=== PATIENT | female | born 1980 | race Caucasian/White ===

== ENCOUNTER → 2016-05-15 | Outpatient (CLI) | payer OTHER ==
--- NOTE | 2016-05-15 10:04 | WWHP ---
DATE OF SERVICE: 05/15/2016 CHIEF COMPLAINT: The patient is here for her routine gynecologic exam and mammogram. HPI: This is a 35-year-old G3, P2-0-1-2 with an LMP of 04/27/2016. She is status post tubal ligation. She states her periods are regular every month. She states they seem to be lasting longer than before and can last up to 10 to 12 days. She states she can have some heavier flow during the middle part of the period. She states these are not very bothersome. The patient is otherwise without complaints. Past medical history is unremarkable. MEDICATIONS: None. ALLERGIES: No known drug allergies. Past surgical and family histories are unchanged from the 2014 H&P. 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 She has no history of STDs. SOCIAL HISTORY: She denies tobacco, alcohol, and drug use. 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 REVIEW OF SYSTEMS: She has gained about 14 pounds over the last 2 years. She denies respiratory, cardiac, or GI problems. PHYSICAL EXAM: Blood pressure 121/80. Height 5 feet 6 inches. Weight 180 pounds. Temperature 98.4, pulse 70. This is a well-developed, well-nourished white female who is alert and oriented x3 in no acute distress. HEENT is within normal limits. NECK: Supple without mass or thyromegaly. CHEST AND LUNGS: Clear to auscultation. HEART: Regular rate and rhythm. Breasts are without mass or discharge. Axillary exam is negative for adenopathy. BACK: Negative for CVA tenderness. ABDOMEN: Soft, nontender, without palpable masses. PELVIC EXAM: Normal external genitalia. Cervix and vagina appear normal. There is no evidence of prolapse. The uterus is multiparous, nongravid size and nontender. There are no palpable adnexal masses or tenderness. Rectal exam is negative for mass or tenderness. EXTREMITIES: Nontender. IMPRESSION: 1. A 35-year-old female with normal gynecologic exam. 2. Mild hypermenorrhea. 3. She is status post tubal ligation. PLAN: 1. Pap smear was performed. 2. Self breast examination was discussed. 3. Mammogram will be done today, and I have recommended yearly mammograms from here on out because of her strong family history of breast cancer. She believes her mother was around 40 when she developed breast cancer. 4. We have discussed her prolonged menses. We have discussed various options, including oral contraception use as well as endometrial ablation. If the periods are bothersome to her, I have recommended that she consider endometrial ablation. She will consider this. She will also keep a menstrual calendar. 5. She will return in one year and p.r.n.
--- NOTE | 2016-05-16 13:12 | MM ---
Reason for exam: screening (asymptomatic). Last mammogram was performed 2 years and 5 months ago. History: Patient has history of other cancer at age 16 and is nulliparous. Family history of breast cancer in mother and breast cancer in maternal grandmother. Excisional biopsy of the left breast. Took hormonal contraceptives for 2 years. Physical Findings: A clinical breast exam by your physician is recommended on an annual basis and results should be correlated with mammographic findings. MG 3D Screening Mammo W/Cad Bilateral CC and MLO view(s) were taken. Prior study comparison: December 04, 2013, bilateral MG diagnostic mammo w CAD BEAU. April 10, 1999, bilateral diagnostic mammogram. The breast tissue is extremely dense which could obscure a lesion on mammography. There is no discrete abnormality. No significant changes when compared with prior studies. ASSESSMENT: Negative, BI-RAD 1 RECOMMENDATION: Routine screening mammogram of both breasts in 1 year.
== END | disposition home or self-care (01) ==
LOC: WWCWWP 07:58
PROVIDERS: ATTEND Obstetrics & Gynecology
DX: Z12.31 Encounter for screening mammogram for malignant neoplasm of breast (principal)
CPT/HCPCS: 77063; G0202

== ENCOUNTER → 2017-09-25 | Outpatient (CLI) | payer OTHER ==
[2017-09-25 08:07] LABS: Basophils # (A) 0.1 k/uL (0-0.2); Basophils % (A) 1 %; Eosinophils # (A) 0.2 k/uL (0-0.7); Eosinophils % (A) 3 %; HCT 37.3 % (34.0-46.0); HGB 12.5 gm/dL (11.4-16.0); Lymphocytes # (A) 2.4 k/uL (1.0-4.8); Lymphocytes % (A) 40 %; MCH 26.9 pg (25.0-35.0); MCHC 33.4 g/dL (31.0-37.0); MCV 80.6 fL (80.0-100.0); Mean Platelet Volume 8.6; Monocytes # (A) 0.4 k/uL (0-1.0); Monocytes % (A) 7 %; Neutrophils # (A) 2.8 k/uL (1.3-7.7); Neutrophils % (A) 47 %; Platelet Count 246 k/uL (150-450); RBC 4.63 m/uL (3.80-5.40)
[2017-09-25 14:34] LABS: T4, Free (Free Thyroxine) 0.93 ng/dL (0.78-2.19)
[2017-09-25 14:40] LABS: ALT 22 U/L (9-52); AST 20 U/L (14-36); Albumin 4.3 g/dL (3.5-5.0); Alkaline Phosphatase 68 U/L (38-126); Anion Gap 9 mmol/L; Blood Urea Nitrogen 30 mg/dL (7-17); Calcium 9.1 mg/dL (8.4-10.2); Carbon Dioxide 26 mmol/L (22-30); Chloride 104 mmol/L (98-107); Cholesterol 239 mg/dL (<200); Glucose 92 mg/dL (74-99); HDL Cholesterol 42 mg/dL (40-60); LDL Cholesterol,Calculated 174 mg/dL (0-99); Potassium 3.9 mmol/L (3.5-5.1); Sodium 139 mmol/L (137-145); Total Bilirubin 0.5 mg/dL (0.2-1.3); Total Protein 7.4 g/dL (6.3-8.2); Triglycerides 113 mg/dL (<150)
== END | disposition home or self-care (01) ==
LOC: LABWHC1 07:45
PROVIDERS: ATTEND Internal Medicine
DX: Z00.01 Encounter for general adult medical examination with abnormal findings (principal); E03.9 Hypothyroidism, unspecified; Z13.220 Encounter for screening for lipoid disorders
CPT/HCPCS: 36415; 80053; 80061; 84439; 84443; 85025

== ENCOUNTER → 2018-05-21 | Outpatient (CLI) | payer OTHER ==
[2018-05-21 08:09] VITALS: BP 132/77; PULSE 76; RESP 18; TEMP 96.8; BMI 30.9
--- NOTE | 2018-05-21 09:59 | P.HPOB ---
History of Present Illness H&P Date: 05/21/18 Chief Complaint: The patient is here for her routine gynecologic exam. This is a 37-year-old 012 with an LMP of 05/05/2018. The patient is status post tubal ligation. She states her menstrual periods are regular every month lasting 7 to 10 days with 4 days of heavier flow. She states she had some blood clots with her menstrual period in April which were a little larger than usual. She is declining any medication or treatment for her menstrual periods at this time. She is aware that there are various options available to her. Review of Systems The patient has gained 6 pounds over the last year. She denies respiratory, cardiac, or G.I. problems. Past Medical History Past Medical History: Thyroid Disorder Additional Past Medical History / Comment(s): migrane. 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 She had cryotherapy of the cervix in 1996 History of Any Multi-Drug Resistant Organisms: None Reported Past Surgical History: Breast Surgery, Section (x2), Tubal Ligation Additional Past Surgical History / Comment(s): lumpectomy Left breast. D&C. Cryotherapy of the cervix 1996. 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 - Past Family History Mother Family Medical History: Cancer, Diabetes Mellitus Additional Family Medical History / Comment(s): Breast cancer, colon cancer, cervical cancer and diabetes. Grandmother had leukemia, colon cancer, and breast cancer. Sister(s) Family Medical History: Diabetes Mellitus Medications and Allergies Home Medications Medication Instructions Recorded Confirmed Type Ibuprofen [Motrin] 800 mg PO Q8HR PRN #30 tab 04/03/15 05/21/18 Rx Cholecalciferol [Vitamin D3] 1,000 unit PO DAILY 05/21/18 05/21/18 History Ubidecarenone [Co Q-10] 100 mg PO DAILY 05/21/18 05/21/18 History Allergies Allergy/AdvReac Type Severity Reaction Status Date / Time No Known Allergies Allergy Verified 05/21/18 08:03 Exam Vital Signs Temp Pulse Resp BP Pulse Ox 05/21/18 08:05 96.8 F L 76 18 132/77 97 Intake and Output 05/20/18 05/21/18 05/21/18 22:59 06:59 14:59 Other: Weight 84.368 kg Height 5'5", weight 186 pounds, BMI 31.0. This is a well-developed well-nourished white female who is alert and oriented times 3 in no acute distress. HEENT: Within normal limits. NECK: Supple without mass or thyromegaly. CHEST AND LUNGS: Clear to auscultation. HEART: Regular rate and rhythm. BREASTS: Are without mass or discharge. AXILLARY EXAM: Negative for adenopathy. BACK: Negative for CVA tenderness. ABDOMEN: Soft, nontender, without palpable masses. PELVIC EXAM: Normal external genitalia. Cervix and vagina appear normal. There is no unusual discharge. There is no evidence of prolapse. The uterus is mid to anterior position, nongravid size and nontender. There are no palpable adnexal masses or tenderness. RECTAL EXAM: there is a small soft internal hemorrhoid which is nontender. Rectal exam is otherwise negative for mass or tenderness. EXTREMITIES: Nontender. IMPRESSION: 1. 37-year-old female with normal gynecologic exam who is status post tubal ligation. 2. Mild hypermenorrhea declining any treatment at this time. PLAN: 1. Pap smear was performed. 2. Self breast awareness was discussed with the patient. 3. Screening mammogram will be done next year and yearly thereafter. She has had several screening mammograms in the past because of her family history. 4. Osteoporosis prevention was discussed. I have stressed the importance of adequate calcium, vitamin D and regular exercise. Recommended amounts of calcium and vitamin D were also discussed. 5. She will keep a menstrual calendar. We have discussed possible options for her hypermenorrhea including endometrial ablation. She is declining any treatment at this time. 6. She was advised to return in one year for her annual well woman exam.
== END | disposition home or self-care (01) ==
LOC: WWCWWP 07:50
PROVIDERS: ATTEND Obstetrics & Gynecology
DX: Z53.9 Procedure and treatment not carried out, unspecified reason (principal)

== ENCOUNTER → 2019-05-27 | Outpatient (CLI) | payer OTHER ==
[2019-05-27 11:23] LABS: Basophils # (A) 0.1 k/uL (0-0.2); Basophils % (A) 1 %; Eosinophils # (A) 0.2 k/uL (0-0.7); Eosinophils % (A) 2 %; HCT 37.6 % (34.0-46.0); Lymphocytes # (A) 2.8 k/uL (1.0-4.8); Lymphocytes % (A) 33 %; MCH 24.8 pg (25.0-35.0); MCHC 31.9 g/dL (31.0-37.0); MCV 77.8 fL (80.0-100.0); Mean Platelet Volume 9.7; Microcytosis Slight; Monocytes # (A) 0.4 k/uL (0-1.0); Monocytes % (A) 5 %; Neutrophils # (A) 4.8 k/uL (1.3-7.7); Neutrophils % (A) 57 %; Platelet Count 292 k/uL (150-450); RBC 4.83 m/uL (3.80-5.40); RDW 15.6 % (11.5-15.5); WBC 8.4 k/uL (3.8-10.6)
[2019-05-27 16:41] LABS: African American GFR (CKD) 82.2 (60.0-200.0); Albumin 4.5 g/dL (3.80-4.90); Albumin/Globulin Ratio 1.96 (1.60-3.17); Calcium 9.4 mg/dL (8.7-10.3); Chol/HDL Ratio 5.23; Globulin 2.3 g/dL (1.6-3.3); LDL Cholesterol,Calculated 145.6 mg/dL (0.0-131.0); Non-African American GFR(CKD) 70.9 (60.0-200.0); Potassium 4.1 mmol/L (3.5-5.5); Total Bilirubin 0.6 mg/dL (0.2-1.2); Total Protein 6.8 g/dL (6.2-8.2); VLDL Calculation 23.4 mg/dL (5.00-40.00)
== END | disposition home or self-care (01) ==
LOC: LABWHC1 09:29
PROVIDERS: ATTEND Internal Medicine
DX: Z00.01 Encounter for general adult medical examination with abnormal findings (principal); E03.9 Hypothyroidism, unspecified; Z13.220 Encounter for screening for lipoid disorders
CPT/HCPCS: 36415; 80053; 80061; 84439; 84443; 85025

== ENCOUNTER → 2019-07-09 | Outpatient (CLI) | payer OTHER ==
[2019-07-09 15:32] LABS: Chol/HDL Ratio 4.02; LDL Cholesterol,Calculated 102.2 mg/dL (0.0-131.0); VLDL Calculation 30.8 mg/dL (5.00-40.00)
[2019-07-09 15:41] LABS: T4, Free (Free Thyroxine) 1.3 ng/dL (0.80-1.80)
== END | disposition home or self-care (01) ==
LOC: LABWHC1 08:18
PROVIDERS: ATTEND Internal Medicine
DX: E03.9 Hypothyroidism, unspecified (principal); E78.00 Pure hypercholesterolemia, unspecified
CPT/HCPCS: 36415; 80061; 84439; 84443; 84450; 84460

== ENCOUNTER → 2020-02-18 | Outpatient (CLI) | payer OTHER ==
[2020-02-18 08:33] LABS: Anisocytosis Slight; Basophils # (A) 0.1 k/uL (0-0.2); Basophils % (A) 1 %; Eosinophils # (A) 0.3 k/uL (0-0.7); Eosinophils % (A) 4 %; HCT 38.7 % (34.0-46.0); HGB 12.1 gm/dL (11.4-16.0); Hypochromasia Moderate; Lymphocytes # (A) 2.1 k/uL (1.0-4.8); Lymphocytes % (A) 32 %; MCH 23.3 pg (25.0-35.0); MCHC 31.1 g/dL (31.0-37.0); MCV 74.7 fL (80.0-100.0); Mean Platelet Volume 8.6; Microcytosis Slight; Monocytes # (A) 0.4 k/uL (0-1.0); Monocytes % (A) 6 %; Neutrophils # (A) 3.7 k/uL (1.3-7.7); Neutrophils % (A) 56 %; Platelet Count 342 k/uL (150-450); RBC 5.18 m/uL (3.80-5.40); RDW 16.1 % (11.5-15.5); WBC 6.7 k/uL (3.8-10.6)
[2020-02-18 15:25] LABS: African American GFR (CKD) 81.6 (60.0-200.0); Albumin 4.4 g/dL (3.80-4.90); Albumin/Globulin Ratio 1.83 (1.60-3.17); Anion Gap 5.2 mmol/L (4.00-12.00); Calcium 9.3 mg/dL (8.7-10.3); Carbon Dioxide 28.8 mmol/L (21.6-31.8); Chol/HDL Ratio 5.08; Globulin 2.4 g/dL (1.6-3.3); LDL Cholesterol,Calculated 159.8 mg/dL (0.0-131.0); Non-African American GFR(CKD) 70.4 (60.0-200.0); Potassium 4.5 mmol/L (3.5-5.5); Total Bilirubin 0.2 mg/dL (0.2-1.2); Total Protein 6.8 g/dL (6.2-8.2); VLDL Calculation 40.2 mg/dL (5.00-40.00)
== END | disposition home or self-care (01) ==
LOC: LABWHC1 07:40
PROVIDERS: ATTEND Internal Medicine
DX: Z00.01 Encounter for general adult medical examination with abnormal findings (principal); E03.0 Congenital hypothyroidism with diffuse goiter; Z13.220 Encounter for screening for lipoid disorders
CPT/HCPCS: 36415; 80053; 80061; 84443; 85025

== ENCOUNTER → 2021-01-03 | Outpatient (CLI) | payer BC ==
--- NOTE | 2021-01-03 15:16 | P.GSHP ---
History of Present Illness H&P Date: 01/03/21 Chief Complaint: Left breast mass/BIRADS 5 left breast ultrasound Carlene is a 40-year-old white female seen in consultation for Dr. Ndiaye regarding a palpable mass in her left breast. She states that the mass was noted several weeks ago and the past week and half to 2 weeks has increased in size. She states that it is not related to her menstrual cycle. She has not had any recent trauma or infection in the breast. She did have a prior left breast biopsy near the site of the mass. This was benign. Caffeine: 2 cups per day Nicotine: Negative control pills/hormones: Negative Family history: Motor: Bilateral breast cancer Maternal grandmother, breast cancer Maternal grandfather: Possible leukemia Hormonal history: Menarche: 14 A1, breast fed: Yes periods Regular Surgical history: Left breast lumpectomy Medical history: Negative Social history: Nicotine: Negative Alcohol: Occasional Drugs: Negative - Constitutional Constitutional: Denies chills, Denies fever - EENT Eyes: denies blurred vision, denies pain Ears: deny: decreased hearing, tinnitus Ears, nose, mouth and throat: Denies headache, Denies sore throat - Breasts Breasts: bilateral: as per HPI - Cardiovascular Cardiovascular: Denies chest pain, Denies shortness of breath - Respiratory Respiratory: Denies cough, Denies 7 - Gastrointestinal Gastrointestinal: Denies abdominal pain, Denies diarrhea, Denies nausea, Denies vomiting - Genitourinary (Female) Genitourinary: Denies dysuria, Denies hematuria - Menstruation Menstruation: Reports period normal - Musculoskeletal Musculoskeletal: Denies myalgias - Integumentary Integumentary: Denies pruritus, Denies rash - Neurological Neurological: Denies numbness, Denies weakness - Psychiatric Psychiatric: Denies anxiety, Denies depression - Endocrine Endocrine: Denies fatigue, Denies weight change - Hematologic/Lymphatic Comment: no bleeding abnormalities - Allergic/Immunologic Allergic/Immunologic: Reports as per HPI Past Medical History Past Medical History: Thyroid Disorder Additional Past Medical History / Comment(s): migrane. 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 She had cryotherapy of the cervix in 1996 History of Any Multi-Drug Resistant Organisms: None Reported Past Surgical History: Breast Surgery, Section, Tubal Ligation Additional Past Surgical History / Comment(s): lumpectomy Left breast. D&C. Cryotherapy of the cervix 1996. Past Psychological History: No Psychological Hx Reported Smoking Status: Never smoker Past Alcohol Use History: Rare (2 per year) Past Drug Use History: None Reported - Past Family History Mother Family Medical History: Cancer, Diabetes Mellitus Additional Family Medical History / Comment(s): Breast cancer, colon cancer, cervical cancer and diabetes. Grandmother had leukemia, colon cancer, and breast cancer. Sister(s) Family Medical History: Diabetes Mellitus Medications and Allergies Home Medications Medication Instructions Recorded Confirmed Type Ibuprofen [Motrin] 800 mg PO Q8HR PRN #30 tab 04/03/15 01/03/21 Rx Ubidecarenone [Co Q-10] 100 mg PO DAILY 05/21/18 01/03/21 History B Complex-Vit C-Vit E-Zinc [Z-Bec] 1 tab PO DAILY 01/03/21 01/03/21 History Thyroid Complex 1 tab PO DAILY 01/03/21 01/03/21 History Vitamin D2/Vitamin K 1 tab PO DAILY 01/03/21 01/03/21 History Allergies Allergy/AdvReac Type Severity Reaction Status Date / Time No Known Allergies Allergy Verified 01/03/21 08:42 Surgical - Exam - General well developed, well nourished, no distress - Eyes normal ocular movement - ENT no hearing loss, no congestion - Neck no masses, trachea midline - Respiratory normal respiratory effort, clear to auscultation - Cardiovascular Rhythm: regular Heart Sounds: normal: S1, S2 - Abdomen Abdomen: soft - Integumentary normal turgor - Neurologic no disoriented, no combative - Musculoskeletal normal gait - Psychiatric oriented to time, oriented to person, oriented to place, speech is normal, memory intact Breast exam: Inspection: Grade 2 ptosis bilaterally Palpation: Right breast: Multiple positional exam fibrocystic changes no dominant masses or nodules of concern Right axilla: No adenopathy of concern Left breast: Multiple positional exam increased mass approximately 4 x 5 cm in size in the upper inner quadrant no other dominant masses or nodules of concern Left axilla: Shotty adenopathy Results Mammogram and ultrasound reviewed with Dr. Skelton; findings revealed admission for core biopsy in the right breast and 2 lesions in the left breast with recommendation of left axillary: Biopsy of the node as well Assessment and Plan Assessment: Impression: 1. Mass left breast 2. Abnormal left breast and right breast ultrasound 3. Family history breast cancer Plan: 1. Right breast ultrasound-guided core biopsy, left breast ultrasound guided guarded biopsy 2 areas as well as axillary lymph node 3. Follow-up after the biopsies The risk and benefits of the procedure were discussed with the patient. She understands and wishes to proceed. Cc: Dr. Ndiaye
== END ==
LOC: WWCWWP 12:13
PROVIDERS: ATTEND Surgery
DX: N63.20 Unspecified lump in the left breast, unspecified quadrant (principal); R92.8 Other abnormal and inconclusive findings on diagnostic imaging of breast; Z80.3 Family history of malignant neoplasm of breast; E03.9 Hypothyroidism, unspecified; G43.909 Migraine, unspecified, not intractable, without status migrainosus

== ENCOUNTER → 2021-01-03 | Outpatient (CLI) | payer BC ==
[2021-01-03 08:47] VITALS: BP 142/82; PULSE 76; RESP 16; TEMP 98.3
--- NOTE | 2021-01-03 09:39 | P.HPOB ---
History of Present Illness H&P Date: 01/03/21 Chief Complaint: The patient is here for her routine gynecologic exam and ma mmogram. This is a 40-year-old 012 with an LMP of 11/22/2020. The patient is status post tubal ligation. Her menstrual periods are generally regular every month lasting 7-10 days with fairly heavy flow. More recently the menstrual periods have been heavy for only 2 days which is less than in the past. She missed her menstrual period earlier this month. She does not feel . She has noticed a lump in the left breast since 12/11/2020. This is in the area of a previous breast biopsy more than 10 years ago. During the past 1-1/2 weeks, the lump has gotten larger and now is the size of a quarter. On her exam, it is firm and slightly tender. She denies any nipple discharge. Review of Systems The patient has gained 10 pounds over the last 2 years. She denies respiratory or cardiac problems. GI: Certain foods seem to upset her stomach and can also cause loose stools. Past Medical History Past Medical History: Thyroid Disorder Additional Past Medical History / Comment(s): migrane. 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 She had cryotherapy of the cervix in 1996 History of Any Multi-Drug Resistant Organisms: None Reported Past Surgical History: Breast Surgery, Section, Tubal Ligation Additional Past Surgical History / Comment(s): lumpectomy Left breast. D&C. Cryotherapy of the cervix 1996. 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 - Past Family History Mother Family Medical History: Cancer, Diabetes Mellitus Additional Family Medical History / Comment(s): Breast cancer, colon cancer, cervical cancer and diabetes. Grandmother had leukemia, colon cancer, and breast cancer. Sister(s) Family Medical History: Diabetes Mellitus Medications and Allergies Home Medications Medication Instructions Recorded Confirmed Type Ibuprofen [Motrin] 800 mg PO Q8HR PRN #30 tab 04/03/15 01/03/21 Rx Ubidecarenone [Co Q-10] 100 mg PO DAILY 05/21/18 01/03/21 History B Complex-Vit C-Vit E-Zinc [Z-Bec] 1 tab PO DAILY 01/03/21 01/03/21 History Thyroid Complex 1 tab PO DAILY 01/03/21 01/03/21 History Vitamin D2/Vitamin K 1 tab PO DAILY 01/03/21 01/03/21 History Allergies Allergy/AdvReac Type Severity Reaction Status Date / Time No Known Allergies Allergy Verified 01/03/21 08:42 Exam Vital Signs Temp Pulse Resp BP Pulse Ox 01/03/21 08:45 98.3 F 76 16 142/82 100 Intake and Output 01/02/21 01/03/21 01/03/21 22:59 06:59 14:59 Other: Weight 88.904 kg Height 5 feet 6 inches, weight 196 pounds, BMI 31.6. This is a well-developed well-nourished white female who is alert and oriented times 3 in no acute distress. HEENT: Within normal limits. NECK: Supple without mass or thyromegaly. CHEST AND LUNGS: Clear to auscultation. HEART: Regular rate and rhythm. BREASTS: There is a left breast mass at the 10 o'clock position approximately 3 cm from the areola. The mass measures approximately 3 x 3 cm and is firm and nontender without skin changes. There are no other palpable masses in the breasts. Nipples are non-inverted and there is no nipple discharge. AXILLARY EXAM: Negative for adenopathy. BACK: Negative for CVA tenderness. ABDOMEN: Soft, nontender, without palpable masses. PELVIC EXAM: Normal external genitalia. Cervix and vagina appear normal. There is no unusual discharge. There is no evidence of prolapse. The uterus is midposition, multiparous nongravid size and nontender. There are no palpable adnexal masses or tenderness. RECTAL EXAM: Rectovaginal exam is negative for mass or tenderness and is negative for occult blood. EXTREMITIES: Nontender. IMPRESSION: 1. 40-year-old premenopausal female who is status post tubal ligation who is currently slightly late for her menstrual period. 2. Normal pelvic exam. 3. Left breast mass at the 10 o'clock position measuring 3 x 3 cm. 4. Previous ASCUS Pap smear with negative high-risk HPV testing on 05/21/2018. PLAN: 1. Pap smear cotest was performed. 2. Self breast awareness was discussed with the patient. We have also discussed symptoms associated with inflammatory breast cancer. 3. Diagnostic mammogram will be done today because of the palpable left breast mass. This will be a bilateral diagnostic mammogram. 4. The patient will keep a menstrual calendar and call she's having menstrual problems. 5. Osteoporosis prevention was discussed. I have stressed the importance of adequate calcium, vitamin D and regular exercise. Recommended amounts of calcium and vitamin D were also discussed. 6. She has not received a Covid vaccination. We have discussed the advantages of getting vaccinated and she states she will reconsider this. 7. She was advised to return in one year for her annual well woman exam and as needed. 8. She is currently without a primary care physician. I Have recommended that she establish with a primary care physician as soon as possible.
--- NOTE | 2021-01-03 12:20 | MM ---
Reason for exam: clinical finding. Last mammogram was performed 4 years and 8 months ago. History: Patient has history of other cancer at age 16. Family history of breast cancer in mother and breast cancer in maternal grandmother. Benign excisional biopsy of the left breast, 1995. Took hormonal contraceptives for 2 years. Physical Findings: Nurse Summary: 3 x 3cm nodule in the left breast at 10 o'clock (Dr. Ndiaye). MG 3D Diag Mammo W/Cad BEAU Bilateral CC, MLO, and LM view(s) were taken. Prior study comparison: May 15, 2016, bilateral MG 3d screening mammo w/cad. December 04, 2013, bilateral MG diagnostic mammo w CAD BEAU. The breast tissue is heterogeneously dense. This may lower the sensitivity of mammography. Asymmetric enlarged left axillary node. Left palpable marker with subtle distortion particularly on the CC view left breast approximately 11 o'clock position. Regional punctate calcifications on the left are similar. These results were verbally communicated with the patient and result sheet given to the patient on 01/03/21. ASSESSMENT: Incomplete: need additional imaging evaluation, BI-RAD 0 RECOMMENDATION: Ultrasound of both breasts.
--- NOTE | 2021-01-03 12:26 | USB ---
Reason for exam: additional evaluation requested from abnormal screening. History: Patient has history of other cancer at age 16. Family history of breast cancer in mother and breast cancer in maternal grandmother. Benign excisional biopsy of the left breast, 1995. Took hormonal contraceptives for 2 years. US Breast BILAT Right complete breast ultrasound includes all four quadrants, the retroareolar region and axilla. Finding demonstrates a 1.0 x 0.6 x 0.9cm complex cyst at 3 o'clock for which a biopsy is recommended, a 1.0 x 0.4 x 0.8cm mixed lesion at 9 o'clock, a 0.7 x 0.6 x 0.6cm cystic cluster at 11 o'clock and a 1.5 x 1.0 x 1.6cm cystic cluster at 10 o'clock. Left complete breast ultrasound includes all four quadrants, the retroareolar region and axilla. Finding demonstrates a 0.8 x 0.5 x 0.8cm mixed lesion at 1 o'clock, a 1.0 x 0.5 x 1.0cm cystic cluster at 2 o'clock, a 0.8 x 0.5 x 0.9cm hypoechoic, solid lesion at 3 o'clock for which a biopsy is recommended, a 2.8 x 2.0 x 3.1cm hypoechoic lesion at 10 o'clock, BI-RADS 5 for which a biopsy is recommended and a 1.2 x 1.0 x 1.4cm lymph node at the axilla for which a biopsy is recommended. These results were verbally communicated with the patient and result sheet given to the patient on 01/03/21. ASSESSMENT: Highly suggestive of malignancy, BI-RAD 5 RECOMMENDATION: Ultrasound core biopsy of both breasts. (right breast at 3 o'clock, left breast x 3 sites) [address] Ndiaye's office with mammographic findings and has scheduled an appointment for the patient for 01/03/21 at 11:[address] Peters. Left breast biopsy scheduled for 01/18/21 at 8 o'clock. Right breast biopsy scheduled for 01/20/21 at 10:30. PRELIMINARY REPORT CALLED AND FAXED TO DR. PETERS ON 01/03/21.
== END ==
LOC: WWCWWP 08:16
PROVIDERS: ATTEND Obstetrics & Gynecology
DX: Z01.419 Encounter for gynecological examination (general) (routine) without abnormal findings (principal); N63.22 Unspecified lump in the left breast, upper inner quadrant; E03.9 Hypothyroidism, unspecified; G43.909 Migraine, unspecified, not intractable, without status migrainosus; Z98.51 Tubal ligation status
CPT/HCPCS: 77062; 77066

== ENCOUNTER → 2021-01-12 | Day surgery (SDC) | payer BC ==
[2021-01-12 10:04] VITALS: TEMP 98.4
--- NOTE | 2021-01-12 11:43 | USB ---
EXAMINATION TYPE: US biopsy breast VAD LT, US biopsy breast add'l VAD LT DATE OF EXAM: 01/12/2021 CLINICAL HISTORY: R92.8 abnormal mammogram. TECHNIQUE: Ultrasound guided core biopsy of left 10:00 breast and left axillary lymph node. COMPARISON: NONE FINDINGS: The procedure of ultrasound guided core biopsy was explained to the patient. Benefits, alternatives, and risks were discussed. An informed consent was then obtained. The patient was placed in supine positioning for imaging and for the procedure. The overlying skin was prepped and draped in usual sterile fashion. Lidocaine buffered with bicarbonate was used as anesthetic into the skin and subcutaneous tissue up to area of concern in the 10:00 breast and left axillary lymph node. Under ultrasound guidance, a 12-gauge vacuum assisted biopsy gun device was used to obtain 4 core samples from the 10:00 lesion and 2 samples from the left axillary lymph node. Following this, a biopsy clip was left in each lesion. Postprocedural mammogram demonstrates appropriate clip deployment. The patient tolerated the procedure well without any immediate complication. The patient was kept in the radiology department for short stay after the procedure and then discharged home in stable condition. IMPRESSION: Successful, uncomplicated ultrasound guided core biopsy of area of concern in the left 10:00 breast and left axillary lymph node, full pathology results to follow. Comment: Left 3:00 and right 3:00 lesions are scheduled to be sampled next week. Pathology Results: Malignant A. 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 See Surgical Pathology Cancer Case Summary and comment. B. LEFT AXILLA, CORE BIOPSY: Lymph node positive for metastatic high grade ductal carcinoma. Greatest dimension of metastatic deposit measures 6 mm. See Surgical Pathology Cancer Case Summary and Comment. Recommendation Surgical consult of the left breast. [facility]
--- NOTE | 2021-01-12 11:48 | MM ---
Reason for exam: additional evaluation requested from abnormal screening. Last mammogram was performed less than 1 month ago. History: Patient has history of other cancer at age 16. Family history of breast cancer in mother and breast cancer in maternal grandmother. Benign excisional biopsy of the left breast, 1995. Took hormonal contraceptives for 2 years. MG Diagnostic Mammo LT Wo CAD CC, MLO, and LM view(s) were taken of the left breast. Prior study comparison: January 03, 2021, bilateral MG 3d diag mammo w/cad BEAU. May 15, 2016, bilateral MG 3d screening mammo w/cad. ASSESSMENT: Post procedure mammogram for marker placement RECOMMENDATION: Ultrasound of the left breast in 6 months. PENDING PATHOLOGY RESULTS.
[2021-01-12 12:30] VITALS: BP 132/80; PULSE 86; RESP 16
== END ==
LOC: RADUSWWP 09:18
PROVIDERS: ATTEND Surgery
DX: C50.212 Malignant neoplasm of upper-inner quadrant of left female breast (principal); C96.9 Malignant neoplasm of lymphoid, hematopoietic and related tissue, unspecified; Z80.3 Family history of malignant neoplasm of breast
CPT/HCPCS: 88305; 88342; 88341; 77065; 38505; 19083; A4648; J2001; 19084

== ENCOUNTER → 2021-01-18 | Day surgery (SDC) | payer BC ==
[2021-01-18 07:38] VITALS: RESP 16; TEMP 98.4
[2021-01-18 09:19] VITALS: BP 125/78; PULSE 76
--- NOTE | 2021-01-18 10:39 | USB ---
EXAMINATION TYPE: US biopsy breast VAD RT, US biopsy breast VAD LT, MG postbiopsy diagnostic mammo BI wo CAD DATE OF EXAM: 01/18/2021 CLINICAL HISTORY: 40-year-old female R92.8 ABNORMAL MAMMOGRAM. Left breast mass and left axillary node biopsy last week. Referred for biopsy of 2 additional lesions, one on each side. TECHNIQUE: Ultrasound guided core biopsy of the bilateral breast. COMPARISON: 01/03/2021 FINDINGS: The procedure of ultrasound guided core biopsy was explained to the patient. Benefits, alternatives, and risks were discussed. An informed consent was then obtained. The patient was placed in supine positioning for imaging and for the procedure. The overlying skin was prepped and draped in usual sterile fashion. Lidocaine was used as anesthetic into the skin and subcutaneous tissue up to area of concern in the right breast. After initial anesthetization of the skin with lidocaine on the left breast, mixture of lidocaine and epinephrine was used for deeper numbing. BIOPSY #3, RIGHT, 3:00 - Cyst cluster vs complex cyst. Under ultrasound guidance, a 13-gauge vacuum-assisted Mammotome Elite biopsy gun was used to obtain 5 core samples. Following this, a wing clip was left in lesion. BIOPSY #4, LEFT, 3:00 - Round circumscribed mass, fibroadenoma vs papilloma vs other. Under ultrasound guidance, a 13-gauge vacuum-assisted Mammotome Elite biopsy gun was used to obtain 6 core samples. Following this, a coil clip was left in lesion. The patient tolerated the procedure well without any immediate complication. The patient was kept in the radiology department for short stay after the procedure and then discharged home in stable condition. Postprocedure mammograms shows a total 1 clip on the right and now 3 clips on the left. Prior wing clip at the suspicious medial left breast mass and left axilla. IMPRESSION: Successful, uncomplicated ultrasound guided core biopsy of SITE #3 right breast (cyst cluster versus complex cyst) and SITE #4 left breast 3:00 (benign mass favored). Full pathology results to follow. Clips at the 10:00 more suspicious left breast mass and left axillary node (corresponding to SITE #1 AND SITE #2 biopsies performed last week) are also demonstrated on the postbiopsy mammogram. Pathology Results: Benign A. RIGHT BREAST, THREE O'CLOCK, CORE BIOPSY: Fibrocystic changes with apocrine metaplasia, columnar cell change, focal microcalcification and hemorrhage with prominent fragmented cystic component. 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 B. LEFT BREAST, THREE O'CLOCK, CORE BIOPSY: Benign fibroadenoma with stromal myxoid change. Fibrocystic change with columnar cell change and focal usual ductal hyperplasia present. Recommendation Appropriate surgical and oncologic management of biopsy proven left breast cancer and metastatic axillary adenopathy (on bioipsies #1 and #2 performed last week) MTDD
== END ==
LOC: RADUSWWP 06:59
PROVIDERS: ATTEND Surgery
DX: N60.11 Diffuse cystic mastopathy of right breast (principal); N60.81 Other benign mammary dysplasias of right breast; D24.2 Benign neoplasm of left breast; N62 Hypertrophy of breast; R92.0 Mammographic microcalcification found on diagnostic imaging of breast; R92.8 Other abnormal and inconclusive findings on diagnostic imaging of breast
CPT/HCPCS: 88305; 77066; 19083; 19084; A4648; J2001

== ENCOUNTER → 2021-01-19 | Outpatient (CLI) | payer BC ==
--- NOTE | 2021-01-19 15:29 | P.PN ---
Subjective Progress Note Date: 01/19/21 Principal diagnosis: Stage I the left breast invasive ductal carcinoma, right breast core biopsies pending Carlene is 40-year-old white female status post left breast ultrasound core biopsy on 1020 [id number]. Pathology. Correct position of the left breast revealed invasive high-grade ductal carcinoma, left axillary core biopsy revealed lymph node positive for metastatic high-grade ductal carcinoma. The patient had a right breast core biopsy done yesterday results are pending. The patient tolerated the procedure with no difficulty. Objective - Constitutional General appearance: Present: cooperative - EENT Eyes: Present: EOMI ENT: Present: hearing grossly normal - Neck Neck: Present: normal ROM - Respiratory Respiratory: bilateral: CTA - Cardiovascular Heart sounds: normal: S1, S2 - Integumentary Integumentary: Present: normal turgor - Musculoskeletal Musculoskeletal: Present: gait normal - Psychiatric Psychiatric: Present: A&O x's 3, appropriate affect, intact judgment & insight - Additional findings Additional findings: Breast examination: Bilateral breast core biopsy sites clean and dry no evidence of infection or hematoma Assessment and Plan Assessment: Impression: Left breast invasive ductal carcinoma high grade T2 N1 M0 ER positive FL positive HER-2 positive G3 stage IB Plan: Appointment with medical oncology Presentation of case at tumor board Genetic testing Follow-up for results of right breast biopsy next week Follow up here in [address] R/O metastatic disease Cc: Dr. Felix
== END ==
LOC: WWCWWP 14:49
PROVIDERS: ATTEND Surgery
DX: C50.912 Malignant neoplasm of unspecified site of left female breast (principal); Z17.0 Estrogen receptor positive status [ER+]

== ENCOUNTER → 2021-01-27 | Outpatient (CLI) | payer BC ==
--- NOTE | 2021-01-27 18:00 | ECHOF ---
Referral Reason:C50.212 Breast ca MEASUREMENTS -------- HEIGHT: 165.1 cm WEIGHT: 84.4 kg BP: RVIDd: 2.8 cm (< 3.3) IVSd: 0.9 cm (0.6 - 1.1) LVIDd: 2.7 cm (3.9 - 5.3) LVPWd: 1.1 cm (0.6 - 1.1) IVSs: 1.8 cm LVIDs: 1.6 cm LVPWs: 1.4 cm LAESV Index (A-L): 14.72 ml/m Ao Diam: 2.8 cm (2.0 - 3.7) AV Cusp: 1.8 cm (1.5 - 2.6) LA Diam: 2.8 cm (2.7 - 3.8) MV EXCURSION: 19.436 mm (> 18.000) MV EF SLOPE: 56 mm/s (70 - 150) EPSS: 0.7 cm MV E Siddharth: 0.81 m/s MV DecT: 200 ms MV A Siddharth: 0.73 m/s MV E/A Ratio: 1.11 RAP: 5.00 mmHg RVSP: 10.99 mmHg FINDINGS -------- Sinus rhythm. This was a technically adequate study. The left ventricular size is normal. Left ventricular wall thickness is normal. Overall left vent ricular systolic function is normal with, an EF between 55 - 60 %. The diastolic filling pattern is normal for the age of the patient 9.39. The right ventricle is normal in size. Normal LA size by volume 22+/-6 ml/m2. The right atrial size is normal. The aortic valve is trileaflet, and appears structurally normal. No aortic stenosis or regurgitation. The mitral valve is normal. Mild mitral regurgitation is present. The tricuspid valve appears structurally normal. Mild tricuspid regurgitation present. Right vent ricular systolic pressure is normal at < 35 mmHg. There is no pulmonic regurgitation present. The aortic root size is normal. Normal inferior vena cava with normal inspiratory collapse consistent with estimated right atrial pre ssure of 5 mmHg. There is no pericardial effusion. CONCLUSIONS -------- 1. Left ventricular wall thickness is normal. 2. Overall left ventricular systolic function is normal with, an EF between 55 - 60 %. 3. Normal LA size by volume 22+/-6 ml/m2. 4. The aortic valve is trileaflet, and appears structurally normal. No aortic stenosis or regurgitati on. 5. Mild mitral regurgitation is present. 6. Mild tricuspid regurgitation present. 7. There is no pericardial effusion. COVERING MACHINE TENDER: Soni Mccain RDCS
== END | disposition home or self-care (01) ==
LOC: RADECHMAIN 14:41
PROVIDERS: ATTEND Internal Medicine Hematology & Oncology
DX: C50.212 Malignant neoplasm of upper-inner quadrant of left female breast (principal); I08.1 Rheumatic disorders of both mitral and tricuspid valves
CPT/HCPCS: 93306

== ENCOUNTER 2021-01-30 06:20 | Day surgery (SDC) | payer BC ==
[2021-01-27 12:04] VITALS: BMI 32.5
[~2021-01-30 06:20] MED LIST: ACETAMINOPHEN TAB 500 MG TAB PO PRN; HEPARIN SODIUM,PORCINE/PF 5,000 UNIT/0.5 ML SYRINGE SQ PRN; Pre Op ABX Message 1 EACH MISC MISCELLANE ONE
[2021-01-30] MEDS ORDERED: DEXAMETHASONE SOD PHOSPHATE 4 MG/ML 1 ML VIAL IV ONE (06:46)
[2021-01-30] MEDS ORDERED: LACTATED RINGERS 1,000 ML IV SCH (06:46)
[2021-01-30] MEDS ORDERED: ONDANSETRON 4 MG/2 ML VIAL IVP ONE (06:46)
[2021-01-30] MEDS ORDERED: SCOPOLAMINE 1.5MG/72HR PATCH TRANSDERM ONE (06:46)
[2021-01-30] MEDS ORDERED: MIDAZOLAM 2 MG/2 ML VIAL IV PRN (06:46)
[2021-01-30] MEDS ORDERED: HYDROmorphone 0.5 MG/0.5 ML SYRINGE IVP PRN (07:00)
[2021-01-30] MEDS ORDERED: LIDOCAINE 1% (10MG/ML) FOR IV START INTRADERMA ONE (07:12)
[2021-01-30] MEDS ORDERED: HEPARIN SODIUM,PORCINE 100 UNIT/ML 5 ML VIAL IV ONE ×4 (08:07→08:52)
[2021-01-30] MEDS ORDERED: LIDOCAINE 1% INJ 10MG/ML (20 ML MDV) SQ ONE ×3 (08:10→08:52)
--- NOTE | 2021-01-30 08:17 | P.GSHP ---
History of Present Illness H&P Date: 01/30/21 Chief Complaint: Left breast cancer Patient here today for Port-A-Cath placement. Patient recently diagnosed with left breast cancer. Believes she is starting chemotherapy sometime next week. She has not had a Port-A-Cath placed previously. Past Medical History Past Medical History: Cancer, Thyroid Disorder Additional Past Medical History / Comment(s): migrane. 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 She had cryotherapy of the cervix in 1996, LEFT BREAST CANCER, History of Any Multi-Drug Resistant Organisms: None Reported Past Surgical History: Breast Surgery, Section, Tubal Ligation Additional Past Surgical History / Comment(s): Left breast SURGICAL BIOPSY D&C. Cryotherapy of the cervix 1996. Left breast biopsy 01/12/21 Past Anesthesia/Blood Transfusion Reactions: No Reported Reaction Smoking Status: Never smoker - Past Family History Mother Family Medical History: Cancer, Diabetes Mellitus Additional Family Medical History / Comment(s): Breast cancer, colon cancer, cervical cancer and diabetes. Grandmother had leukemia, colon cancer, and breast cancer. Sister(s) Family Medical History: Diabetes Mellitus Medications and Allergies Home Medications Medication Instructions Recorded Confirmed Type Ubidecarenone [Co Q-10] 100 mg PO DAILY 05/21/18 01/30/21 History Thyroid Complex 1 tab PO DAILY 01/03/21 01/30/21 History Cholecalciferol (Vitamin D3) 125 mcg PO DAILY 01/27/21 01/30/21 History [Vitamin D3 (125 MCG = 5,000 IU)] Gut Support Complex 1 tab PO BID 01/27/21 01/30/21 History Vitamin K2 90 mcg PO DAILY 01/27/21 01/30/21 History Allergies Allergy/AdvReac Type Severity Reaction Status Date / Time No Known Allergies Allergy Verified 01/30/21 07:20 Surgical - Exam Vital Signs Temp Pulse Resp BP Pulse Ox 98.2 F 84 16 135/75 98 01/30/21 07:00 01/30/21 07:00 01/30/21 07:00 01/30/21 07:00 01/30/21 07:00 Physical exam: General: Well-developed, well-nourished HEENT: Normocephalic, sclerae nonicteric Abdomen: Nontender, nondistended Extremities: No edema Neuro: Alert and oriented Assessment and Plan (1) Breast cancer, left Narrative/Plan: Will proceed with Port-A-Cath placement. Risks of bleeding, infection, DVT, pneumothorax, catheter malfunction, anesthesia related complications were discussed. The patient understands and wishes to proceed. Current Visit: Yes Status: Acute Code(s): C50.912 - MALIGNANT NEOPLASM OF UNSPECIFIED SITE OF LEFT FEMALE BREAST SNOMED Code(s): 925481169
[2021-01-30] MEDS ORDERED: LIDOCAINE 1% INJ 10MG/ML (20 ML MDV) ONE (08:20)
[2021-01-30] MEDS ORDERED: MIDAZOLAM 2 MG/2 ML VIAL ONE (08:20)
[2021-01-30] MEDS ORDERED: PROPOFOL 10 MG/ML 20 ML VIAL IV ONE (08:20)
[2021-01-30] MEDS ORDERED: fentaNYL (PF) 50 MCG/ML 2 ML AMP ONE (08:20)
[2021-01-30] MEDS ORDERED: SODIUM CHLORIDE 0.9% 100 ML with ceFAZolin 2,000 MG IV ONE ×2 (08:39)
[2021-01-30] MEDS ORDERED: traMADol 50 MG TAB PO PRN (09:17)
[2021-01-30] MEDS ORDERED: NALOXONE 0.4 MG/ML 1 ML VIAL IV PRN (09:17)
--- NOTE | 2021-01-30 09:20 | P.OP ---
Date of Procedure: 01/30/21 Procedure(s) Performed: PREOPERATIVE DIAGNOSIS: Left breast cancer POSTOPERATIVE DIAGNOSIS: Same PROCEDURE: Port-A-Cath placement with fluoroscopic and ultrasound guidance SURGEON: Beth EBL: Minimal ANESTHESIA: Sedation COMPLICATIONS: None OPERATIVE PROCEDURE: Patient was brought and placed on the operative table in the supine position. The patient was sedated per anesthesia that time. The chest and neck were prepped and draped in usual sterile fashion. The ultrasound probe was used to identify the location of the right internal jugular vein. The skin was localized with lidocaine. The Seldinger needle was advanced into the IJ under ultrasound guidance. The wire was advanced through the needle under fluoroscopic guidance into the superior vena cava. A port pocket was created in the right infraclavicular location. The catheter was tunneled from the wire entrance site to the port pocket. The port was then connected to the catheter. The dilator introducer was threaded over the guidewire. The guidewire and dilator were then removed. The catheter was advanced through the introducer and introducer was then removed. The tip was seen to be in the right atrial junction via fluoroscopy. A picture of the radiograph showing the tip at the radial digital junction was taken. Port was flushed with both saline and a Hep- Lock solution. There was good flow both in and out of the port. The port was sutured in underlying tissues using 3-0 silk sutures. The subcutaneous tissues were reapproximated using 3-0 Vicryl sutures and the skin at both locations using 4-0 Monocryl sutures. Skin glue and sterile dressings then applied. DISPOSITION: Stable to recovery room
--- NOTE | 2021-01-30 09:22 | FL ---
EXAMINATION TYPE: FL guided central line placemt HISTORY: Fluoroscopy time Impression: 1. Fluoroscopy support provided to the referring physician.
[2021-01-30 09:28] VITALS: TEMP 98.6
--- NOTE | 2021-01-30 10:03 | XR ---
EXAMINATION TYPE: XR chest 1V confirm line [facility] DATE OF EXAM: 01/30/2021 COMPARISON: NONE HISTORY: Line placement TECHNIQUE: Single frontal view of the chest is obtained. FINDINGS: There is no focal air space opacity, pleural effusion, or pneumothorax seen. The cardiac silhouette size is within normal limits. The osseous structures are intact. Mediport seen with the tip overlying the SVC. IMPRESSION: Mediport catheter seen with tip overlying the SVC and no sizable pneumothorax.
[2021-01-30 10:28] VITALS: BP 118/79; PULSE 72; RESP 14
== END 2021-01-30 10:53 | disposition home or self-care (01) ==
LOC: OR 06:20
PROVIDERS: ATTEND Surgery
DX: Z45.2 Encounter for adjustment and management of vascular access device (principal); C50.912 Malignant neoplasm of unspecified site of left female breast; E03.9 Hypothyroidism, unspecified; Z80.3 Family history of malignant neoplasm of breast; Z83.3 Family history of diabetes mellitus; Z85.3 Personal history of malignant neoplasm of breast
CPT/HCPCS: 36561; 81025; 77001; C1788; J2250; J1642; J1100; J2405; J0690; J2001; J3010; J2704; J1644

== ENCOUNTER → 2021-01-31 | Outpatient (CLI) | payer BC ==
--- NOTE | 2021-01-31 12:37 | CT ---
EXAMINATION TYPE: CT ChestAbdPelvis w con DATE OF EXAM: 01/31/2021 COMPARISON: HISTORY: Breast Cancer, observe for mets CT DLP: 1933 mGycm Automated exposure control for dose reduction was used. CONTRAST: CT scan of the chest, abdomen and pelvis is performed with Oral Contrast and with IV Contrast, patien t injected with 100 ml mL of Isovue 300. FINDINGS: LUNGS: There is a 5 mm subpleural nodule in the right lower lobe likely benign. Additional 2 mm subpl eural nodule right lower lobe. No consolidation or pleural effusion. No pneumothorax. MEDIASTINUM: There are no greater than 1 cm hilar or mediastinal lymph nodes. No pericardial effusi on is seen. OTHER: No additional significant abnormality is seen. LIVER/GB: No significant abnormality is appreciated. PANCREAS: No significant abnormality is seen. SPLEEN: Splenic hypodensities are too small to characterize but likely related to cysts. ADRENALS: No significant abnormality is seen. KIDNEYS: 5 mm hypodensity left kidney too small to characterize but likely related to a cyst.. BOWEL: No significant abnormality is seen. LYMPH NODES: No greater than 1 cm abdominal or pelvic lymph nodes are appreciated. OSSEOUS STRUCTURES: No significant abnormality is seen. OTHER: There is be hyperdense mass within the left breast measuring 2.4 cm. Surgical clip suspected. There is shotty adenopathy in the axilla. There is marked heterogeneity to the uterus with multiple s uspected uterine masses. There is a large exophytic lesion measuring 5 cm. Mediport catheter noted. IMPRESSION: 1. Sub-5 mm subpleural nodules right lower lobe likely benign. 2. No pathologic adenopathy. 3. Hyperdense mass left breast as discussed above. 4. Marked abnormal appearance of the uterus with a large 5 cm exophytic mass likely uterine. Recommen d ultrasound to exclude ovarian etiology. Findings could represent fibroid uterus. Other etiologies n ot excluded.
--- NOTE | 2021-01-31 18:58 | NM ---
EXAMINATION TYPE: NM bone scan whole body DATE OF EXAM: 01/31/2021 COMPARISON: CT same date HISTORY: C50.212 Breast CA Z03.89 Obs for suspected mets Delayed whole-body scanning was performed following the injection of 23 mCi Tc 99m MDP. Images acqui red 3 hours post injection. FINDINGS: Uptake within the knees, wrists, elbows, shoulders, sternoclavicular joints is likely degenerative. S oft tissue uptake is normal. No areas of abnormal increased or decreased uptake to suggest metastatic disease. IMPRESSION: No evident metastatic disease.
== END | disposition home or self-care (01) ==
LOC: RADNMMAIN 09:52
PROVIDERS: ATTEND Internal Medicine Hematology & Oncology
DX: C50.212 Malignant neoplasm of upper-inner quadrant of left female breast (principal); R91.8 Other nonspecific abnormal finding of lung field; R93.89 Abnormal findings on diagnostic imaging of other specified body structures
CPT/HCPCS: 82565; 84520; 71260; 74177; 36415; 78306; A9503; Q9967

== ENCOUNTER → 2021-02-03 | Outpatient (CLI) | payer BC ==
--- NOTE | 2021-02-05 17:40 | US ---
EXAMINATION TYPE: US pelvis complete transvag DATE OF EXAM: 02/03/2021 COMPARISON: CT 01/31/2021 CLINICAL HISTORY: 40-year-old female Z03.89 OBSERVATION FOR SUSPECTED METS. Mass seen on recent CT, g ravida 3, para 2, miscarriage 1, history of 2 c-sections and tubal ligation TECHNIQUE: . Transabdominal sonographic images of the pelvis were acquired. Transvaginal sonographi c images were medically necessary to better assess the following anatomy: endometrium Date of LMP: 02/01/2021 EXAM MEASUREMENTS: Uterus: 12.4 x 5.8 x 6.6 cm Endometrial Stripe: 0.6 cm Right Ovary: 3.3 x 2.0 x 1.5 cm Left Ovary: 2.9 x 1.7 x 2.1 cm 1. Uterus: anteverted, enlarged, heterogeneous with 5.6 x 4.9 x 5.3cm exophytic fundal hypoechoic ar ea, compatible with the mass seen on CT. 2. Endometrium: 3.9cm heterogeneous oval area seen within endocervical canal, possible blood clot, prolapsed fibroid, or other mass. An adjacent 1.5 cm cervical nabothian cyst is noted. The endometria l stripe itself is normal. 3. Right Ovary: wnl 4. Left Ovary: wnl 5. Bilateral Adnexa: wnl 6. Posterior cul-de-sac: wnl IMPRESSION: 1. Recommend direct visualization and possible Pap smear. There is a 3.9 cm oval heterogeneous area a long the endocervical canal. This could represent blood clot, prolapsed fibroid, or other mass. Furth er evaluation is recommended. 2. Bulky fibroid uterus. There is a 5.6 cm exophytic subserosal pedunculated fibroid from the fundus of the uterus.
== END | disposition home or self-care (01) ==
LOC: RADUSWWP 14:58
PROVIDERS: ATTEND Internal Medicine Hematology & Oncology
DX: D25.2 Subserosal leiomyoma of uterus (principal); R93.89 Abnormal findings on diagnostic imaging of other specified body structures
CPT/HCPCS: 76830; 76856

== ENCOUNTER → 2021-02-15 | Day surgery (SDC) | payer BC ==
--- NOTE | 2021-02-15 08:58 | P.PN ---
Progress Note - Text Progress Note Date: 02/15/21 The patient was found to have a left breast mass and she did undergo a breast biopsy on 01/12/2021 which showed invasive high-grade ductal carcinoma. Her oncologist, Dr. Felix, ordered a CT scan of the chest, abdomen and pelvis. This was done on 01/31/2021 and showed a 5 cm exophytic mass coming from the uterus, or possibly from the ovary. Pelvic ultrasound was recommended. Pelvic ultrasound was done on 02/03/2021 which showed a bulky fibroid uterus with a 5.6 cm exophytic subserosal pedunculated fibroid from the fundus of the uterus. There was also a 3.9 cm full heterogeneous area along the endocervical canal. I have reviewed the images and this appears complex with some cystic components. The endometrial stripe was 6 mm and considered normal. I have discussed these findings by phone with the patient today. 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 Her LMP was 02/01/2021 which she states was a bit abnormal in that after a couple of days of flow she tended to have more mucousy tissue rather than blood. The patient will be seen in my office today at 11 AM to reexamine the patient and to possibly do a endometrial biopsy. Additional studies: Pap smear cotest was done on 01/03/2021 and was negative with a negative high-risk HPV test. Impression: 1. 40-year-old perimenopausal female who is status post tubal ligation with hypermenorrhea involving prolonged menstrual periods lasting 11-14 days. 2. Fibroid uterus by pelvic ultrasound with a 3.9 cm oval heterogeneous complex area along the endocervical canal. Differential diagnosis will include a prolapsed uterine fibroid, endometrial or endocervical polyp, blood clot, or other masses. 3. Recent diagnosis of left breast cancer. Plan: 1. The patient will be coming in to be seen this morning for further evaluation and possible endometrial biopsy. 2. We will consider referral for possible hysteroscopy and D&C or other indicated procedures or treatment.
[2021-02-15 10:57] VITALS: BP 138/83; PULSE 75; RESP 18; TEMP 98.1
--- NOTE | 2021-02-15 12:17 | P.PCN ---
Date of Procedure: 02/15/21 Preoperative Diagnosis: Menorrhagia and abnormal heterogeneous mass along the cervical canal. Postoperative Diagnosis: Same. Procedure(s) Performed: Endometrial biopsy. Anesthesia: none Surgeon: Evans Ndiaye Estimated Blood Loss (ml): 1 Pathology: other (Endometrial and endocervical tissue.) Condition: stable Disposition: same day Indications for Procedure: This was a 40-year-old female who was recently diagnosed with left breast cancer. In the workup she underwent a CT scan of the chest, abdomen, and pelvis. The CT scan showed an exophytic mass that was believed to come from the top of the uterus. A pelvic ultrasound was done as follow-up and this showed a subserosal pedunculated fibroid and an abnormal 3.9 cm oval heterogeneous complex area along the endocervical canal. The patient also has a history of long menstrual periods lasting 11-14 days. Recent Pap smear on 01/03/2021 was negative and high-risk HPV testing was also negative. The decision was made to do an endometrial biopsy. Operative Findings: Bimanual examination reveals a bulky uterus which is firm and approximately 10- 12 weeks' size consistent with a fibroid uterus. The uterus is nontender. The cervix is wider than average and there is no cervical motion tenderness. There are no palpable adnexal masses or tenderness. The endometrial biopsy instrument went in to 4.5 cm. A small to moderate amount of tissue was obtained. There is also some clear mucus also obtained. Description of Procedure: Please also refer to the progress note from earlier today. The findings from the ultrasound was again reviewed with the patient. We have discussed the procedure of endometrial biopsy and we also discussed possible risks with this procedure including bleeding, infection and uterine perforation. All of her questions were answered. The patient was placed in the lithotomy position and I manual examination was performed. The uterus was somewhat bulky and firm approximately 10-12 weeks size. This seems consistent with a fibroid uterus. The cervix is wider than average. There is no cervical motion tenderness. The cervix is closed. A speculum was inserted and the cervix and vagina were prepped with Betadine solution. An Allis clamp was placed on the anterior lip of the cervix. The 3mm endometrial biopsy instrument was placed to a depth of 4.5 cm and could not be advanced easily beyond this. With various simple cervical manipulation, the instrument could not be advanced anymore. Negative pressure was applied and a [id number] rotating motion was used. The first time this was done clear mucousy material was obtained. The sampling was repeated twice. A small to moderate amount of bloody tissue was obtained. The instruments were removed. The patient tolerated the procedure well. Postprocedure blood pressure was 113/80, pulse 77 and pulse oximeter 99%. The patient was instructed to call if she has problems including heavy bleeding, unusual pain, fever or other problems. Discussion: The sampling of tissue may have been from the lower uterine segment and endocervical canal. It does not seem that this reached the fundus with the ability to advance the instrument to 4.5 cm only. If the sampling pathology is nondiagnostic, we will consider referring her for hysteroscopy and D&C for further evaluation of the mass along the endocervical canal.
== END ==
LOC: WWCWWP 10:44
PROVIDERS: ATTEND Obstetrics & Gynecology
DX: N92.0 Excessive and frequent menstruation with regular cycle (principal); N88.9 Noninflammatory disorder of cervix uteri, unspecified; R93.5 Abnormal findings on diagnostic imaging of other abdominal regions, including retroperitoneum; C50.919 Malignant neoplasm of unspecified site of unspecified female breast
CPT/HCPCS: 88305

== ENCOUNTER → 2021-05-03 | Outpatient (CLI) | payer BC, OTHER ==
--- NOTE | 2021-05-03 12:34 | ECHOF ---
Referral Reason:Z01.818 pre procedureal MEASUREMENTS -------- HEIGHT: 165.1 cm WEIGHT: 78.9 kg BP: RVIDd: 2.9 cm (< 3.3) IVSd: 1.1 cm (0.6 - 1.1) LVIDd: 3.3 cm (3.9 - 5.3) LVPWd: 1.4 cm (0.6 - 1.1) IVSs: 1.4 cm LVIDs: 2.8 cm LVPWs: 1.6 cm LA Diam: 3.1 cm (2.7 - 3.8) LAESV Index (A-L): 17.32 ml/m Ao Diam: 2.5 cm (2.0 - 3.7) LA Diam: 3.4 cm (2.7 - 3.8) MV EXCURSION: 18.919 mm (> 18.000) MV EF SLOPE: 58 mm/s (70 - 150) EPSS: 0.1 cm MV E Siddharth: 0.55 m/s MV DecT: 187 ms MV A Siddharth: 0.93 m/s MV E/A Ratio: 0.59 RAP: 5.00 mmHg RVSP: 13.21 mmHg FINDINGS -------- Sinus rhythm. This was a technically adequate study. LV size, wall thickness and systolic function are normal, with an EF greater than 55%. The left kelly tricular size is normal. The diastolic filling pattern is normal for the age of the patient 8.17. The right ventricle is normal in size. The left atrial size is normal. The right atrial size is normal. The aortic valve is trileaflet, and appears structurally normal. No aortic stenosis or regurgitation. The mitral valve is normal. Mild mitral regurgitation is present. The tricuspid valve appears structurally normal. Mild tricuspid regurgitation present. Right vent ricular systolic pressure is normal at < 35 mmHg. There is no pulmonic regurgitation present. The aortic root size is normal. There is a small, generalized pericardial effusion present. CONCLUSIONS -------- 1. LV size, wall thickness and systolic function are normal, with an EF greater than 55%. 2. The left atrial size is normal. 3. The aortic valve is trileaflet, and appears structurally normal. No aortic stenosis or regurgitati on. 4. Mild mitral regurgitation is present. 5. Mild tricuspid regurgitation present. 6. There is a small, generalized pericardial effusion present. SPECIAL DELIVERY WORKER: Meagan Ford RDCS
== END | disposition home or self-care (01) ==
LOC: RADECHMAIN 11:40
PROVIDERS: ATTEND Internal Medicine Hematology & Oncology
DX: Z01.818 Encounter for other preprocedural examination (principal); I08.1 Rheumatic disorders of both mitral and tricuspid valves; I31.3 Pericardial effusion (noninflammatory)
CPT/HCPCS: 93306

== ENCOUNTER → 2021-07-07 | Day surgery (SDC) | payer BC ==
[2021-07-05 12:57] VITALS: BMI 27.6
[~2021-07-07] MED LIST changes: +BUPIVACAINE (PF) 0.25% 30 ML VIAL SQ ONE; +DEXAMETHASONE SOD PHOSPHATE 4 MG/ML 1 ML VIAL IV ONE; +HYDROmorphone (PF) 1 MG/ML ONE; +HYDROmorphone 0.5 MG/0.5 ML SYRINGE IVP PRN; +LACTATED RINGERS 1,000 ML IV SCH; +LIDOCAINE 1% INJ 10MG/ML (20 ML MDV) ONE; +LIDOCAINE 1% INJ 10MG/ML (20 ML MDV) SQ ONE; +METHYLENE BLUE 10 MG/ML (10 ML VIAL) MISCELLANE ONE; +MIDAZOLAM 2 MG/2 ML VIAL ONE; +NALOXONE 0.4 MG/ML 1 ML VIAL IV PRN; +ONDANSETRON 4 MG/2 ML VIAL IVP ONE; +PROPOFOL 10 MG/ML 20 ML VIAL IV ONE; +SCOPOLAMINE 1 MG/72 HR PATCH TRANSDERM ONE; +SODIUM CHLORIDE 0.9% 100 ML with ceFAZolin 2,000 MG IV ONE; +fentaNYL (PF) 50 MCG/ML 2 ML AMP ONE; +traMADol 50 MG TAB PO PRN
[2021-07-07 08:17] VITALS: RESP 16
--- NOTE | 2021-07-07 10:03 | NM ---
EXAMINATION TYPE: NM sentinel node injection DATE OF EXAM: 07/07/2021 COMPARISON: NONE INDICATION: Abnormal mammogram. Informed consent was obtained. A timeout was performed. The area around the left nipple was cleansed with alcohol. In a single dose, a total of 85 uCi Tech netium 99m Tilmanocept was injected. The patient tolerated the procedure very well. IMPRESSIONS: 1. Successful injection for sentinel node evaluation.
--- NOTE | 2021-07-07 11:07 | P.OP ---
Date of Procedure: 07/07/21 Procedure(s) Performed: PREOPERATIVE DIAGNOSIS: Left breast cancer POSTOPERATIVE DIAGNOSIS: Same PROCEDURE: Left Breast wire localization lumpectomy with sentinel lymph node biopsy SURGEON: Beth EBL: 20 mL ANESTHESIA: General COMPLICATIONS: None OPERATIVE PROCEDURE: Patient was placed on the operating room table in the supine position. 2 mL of methylene blue was injected into the subareolar space. The breast was then massaged for 5 minutes. The breast was prepped and draped in usual sterile fashion. The left axilla was addressed at that time. The patient had a preoperative localization of a positive node using a wire. This wire was entering the axilla somewhat inferior. The hot spot in the left axilla was identified. A small curvilinear incision was made using the scalpel. Dissection down through the subcutaneous tissues took place using electrocautery. The wire was brought out through the incision site at that time. The wire was followed down to a blue colored radioactively positive lymph node that was excised. This had an adjacent small node as well. A total of 3 more blue radioactive nodes were then seen and removed in a similar fashion. All of these had benign characteristics by exam. These were sent for permanent sectioning after clip was confirmed to be present within the previously biopsied lymph node. No additional radioactivity was identified in the axilla at that point. The surgical site was inspected and no bleeding was seen. The subcutaneous tissues were closed using 3-0 Vicryl sutures. The skin was closed using 4-0 Monocryl sutures. The wire entrance site was then addressed. This was present at the 10:00 location. A curvilinear incision was made adjacent to the areola. Subcutaneously I dissected superficially until the wire was seen. The wire was then brought out through this incision site. I followed the wire down into the breast tissue. An adequate lumpectomy specimen then took place around the wire. Margins of 1.5-2 cm worth attempted to be achieved. Palpation of the specimen did not suggest the presence of any close margins. The specimen was also painted the appropriate 6 colors. Clips were used to identify the lumpectomy cavity. The clip was confirmed to be within the lumpectomy specimen by radiology. The subcutaneous tissues were closed using 3-0 Vicryl sutures. The skin was closed using a running 4-0 Monocryl stitch. Skin glue was then applied. DISPOSITION: Stable to recovery room
[2021-07-07 11:15] VITALS: TEMP 97
[2021-07-07] MEDS: HYDROmorphone 0.5 MG/0.5 ML SYRINGE IVP PRN ×3 (11:34→11:56)
[2021-07-07 12:27] VITALS: BP 164/83; PULSE 70
--- NOTE | 2021-07-07 12:57 | MM ---
EXAMINATION TYPE: US breast localization LT DATE OF EXAM: 07/07/2021 COMPARISON: Ultrasound 01/18/2021 CLINICAL HISTORY: Abnormal biopsy results TECHNIQUE: Ultrasound-guided Needle localization with wire placement and surgical excision of area of concern in the left axilla FINDINGS: The procedure of needle localization with wire placement for surgical excision was explained to the patient. Risk, benefits, and alternatives were discussed. An informed consent was then obtained. A timeout was performed. The overlying skin was prepped in usual sterile fashion. Lidocaine 1% was used as anesthetic into the skin and subcutaneous tissue up to the level of area of concern. A 5 cm needle was used. Needle was placed through the lymph node with the identified marker present. Wire was placed through the needle under ultrasound guidance. The wire was fixed to patient's skin. Ultrasound image was transferred for surgeon. The patient tolerated the procedure well without any immediate complication. Specimen: The wire and the targeted marker are identified within the specimen mammogram. IMPRESSION: 1. Successful wire localization and excision. Recommendations: 1. Recommendations are pending pathology results. Pathology Results: Malignant A. LEFT SENTINEL LYMPH NODE, BIOPSY: Three total lymph nodes, one node with treatment related changes including fibrosis and granulomatoid histiocyte aggregates. No residual viable metastatic tumor is identified. CK7 immunoperoxidase stain is confirmatory (control appropriate). B. LEFT BREAST, LUMPECTOMY: Scar with fibrosis and chronic inflammation consistent with neoadjuvant treatment related changes and fibrocystic changes. No residual malignant neoplasm is identified. See Surgical Pathology Cancer Case Summary. Recommendation Follow up mammogram of the left breast in 6 months. Malignancy treated. Appropriate oncologic management. ARSEN
--- NOTE | 2021-07-07 16:49 | MM ---
EXAMINATION TYPE: MG pre op needle loc LT DATE OF EXAM: 07/07/2021 COMPARISON: Ultrasound 01/18/2021, mammogram 01/12/2021 CLINICAL HISTORY: Abnormal mammogram, abnormal pathology TECHNIQUE: Needle localization with wire placement and surgical excision of area of concern in the left breast. FINDINGS: The procedure of needle localization with wire placement for surgical excision was explained to the patient. Risk, benefits, and alternatives were discussed. An informed consent was then obtained. A timeout was performed. The overlying skin was prepped and draped in usual sterile fashion. Lidocaine 1% was used as anesthetic into the skin and subcutaneous tissue up to the level of area of concern. A 7 cm needle was used. This was placed via a medial approach under mammographic guidance. Subsequent 90 degrees mammogram show the needle to be in satisfactory position relative to the targeted area. The wire was placed through the needle and the needle was withdrawn. The wire was fixed to patient's skin. Images were marked for surgeon. The patient tolerated the procedure well without any immediate complication. Specimen: The wire and the targeted core marker is identified within the specimen mammogram. IMPRESSION: 1. Successful wire localization and excision. Recommendations: 1. Recommendations are pending pathology results. Pathology Results: Malignant A. LEFT SENTINEL LYMPH NODE, BIOPSY: Three total lymph nodes, one node with treatment related changes including fibrosis and granulomatoid histiocyte aggregates. No residual viable metastatic tumor is identified. CK7 immunoperoxidase stain is confirmatory (control appropriate). B. LEFT BREAST, LUMPECTOMY: Scar with fibrosis and chronic inflammation consistent with neoadjuvant treatment related changes and fibrocystic changes. No residual malignant neoplasm is identified. See Surgical Pathology Cancer Case Summary. Recommendation Follow up mammogram of the left breast in 6 months. Malignancy treated. Appropriate oncologic management. [facility]
== END | disposition home or self-care (01) ==
LOC: OR 07:04
PROVIDERS: ATTEND Surgery
DX: C50.912 Malignant neoplasm of unspecified site of left female breast (principal); C77.3 Secondary and unspecified malignant neoplasm of axilla and upper limb lymph nodes; E07.9 Disorder of thyroid, unspecified; Z17.0 Estrogen receptor positive status [ER+]; Z80.3 Family history of malignant neoplasm of breast; Z79.890 Hormone replacement therapy; Z79.899 Other long term (current) drug therapy; Z98.891 History of uterine scar from previous surgery; Z98.51 Tubal ligation status; Z98.890 Other specified postprocedural states; Z80.0 Family history of malignant neoplasm of digestive organs
CPT/HCPCS: 19301; 38525; 81025; 88342; 88307; 76098; 19281; 19285; 38792; C1819; A9520; J2250; J1100; J2405; J0690; J2001; Q9968; J3010; J1170 ×2; J2704; J1644

== ENCOUNTER → 2021-08-17 | Outpatient (CLI) | payer BC ==
--- NOTE | 2021-08-17 10:07 | CA ---
Transthoracic Echo Report Name: Carlene Ortez Age: 40 Gender: F : 1980 Exam Date: 08/17/2021 08:07 Exam Location: [facility] Ht (in): 66 Wt (lb): 160 Ordering Physician: Edgar Felix MD Attending/Referring Phys: Gas Reverser Mary Negrete RDCS Procedure CPT: Indications: Z01.818 Chemo Cardiac Hx: Technical Quality: Good Contrast 1: Total Dose (mL): Contrast 2: Total Dose (mL): MEASUREMENTS (Male / Female) Normal Values 2D ECHO LV Diastolic Diameter PLAX 4.4 cm 4.2 - 5.9 / 3.9 - 5.3 cm LV Systolic Diameter PLAX 2.5 cm IVS Diastolic Thickness 1.0 cm 0.6 - 1.0 / 0.6 - 0.9 cm LVPW Diastolic Thickness 1.0 cm 0.6 - 1.0 / 0.6 - 0.9 cm LV Relative Wall Thickness 0.5 RV Internal Dim ED PLAX 3.0 cm LA Systolic Diameter LX 2.9 cm 3.0 - 4.0 / 2.7 - 3.8 cm LA Volume 42.1 cm??? 18 - 58 / 22 - 52 cm??? M-MODE Aortic Root Diameter MM 2.8 cm MV E Point Septal Separation 0.3 cm AV Cusp Separation MM 1.9 cm DOPPLER AV Peak Velocity 138.9 cm/s AV Peak Gradient 7.7 mmHg MV Area PHT 3.2 cm??? Mitral E Point Velocity 100.4 cm/s Mitral A Point Velocity 65.3 cm/s Mitral E to A Ratio 1.5 MV Deceleration Time 240.2 ms MV E' Velocity 12.7 cm/s Mitral E to MV E' Ratio 7.9 FINDINGS Left Ventricle Left ventricular ejection fraction is estimated at 60-65 %. Left ventricular cavity size normal. Left ventricular wall thickness normal. Right Ventricle Normal right ventricular size and function. Unable to estimate the right ventricular systolic pressure. Right Atrium Normal right atrial size. Left Atrium Normal left atrial size. No evidence for an atrial septal defect. Mitral Valve Structurally normal mitral valve. No mitral stenosis, regurgitation or prolapse. Aortic Valve Trileaflet aortic valve. No aortic valve stenosis or regurgitation. Tricuspid Valve Trace tricuspid regurgitation. Pulmonic Valve Trace pulmonic regurgitation. Pericardium Normal pericardium. Aorta Normal size aortic root and proximal ascending aorta. CONCLUSIONS Normal left ventricular ejection fraction 60-65% Trace tricuspid regurgitation Normal left ventricular thickness No pericardial effusion Previewed by: Dr. Sandeep Zhao DO (Electronically Signed) Final Date: 17 August 2021 10:06
== END | disposition home or self-care (01) ==
LOC: RADECHMAIN 07:55
PROVIDERS: ATTEND Internal Medicine Hematology & Oncology
DX: Z01.818 Encounter for other preprocedural examination (principal); I07.1 Rheumatic tricuspid insufficiency; I37.1 Nonrheumatic pulmonary valve insufficiency
CPT/HCPCS: 93306

== ENCOUNTER → 2021-08-25 | Outpatient (CLI) | payer BC ==
--- NOTE | 2021-08-28 10:45 | USB ---
Reason for Exam: Clinical finding. Patient History: Menarche at age 12. First Full-Term at age 20. Other cancer, age 16. Breast cancer, age 40. Patient used Hormonal Contraceptives for 2 years. 07/07/2021, Lumpectomy on the Left side. 1995, Benign Excisional Biopsy on the left side. Malignant Core Biopsy. 07/07/2021, Malignant Core Biopsy on the left side. 01/18/2021, Benign Core Biopsy on the left side. 01/18/2021, Benign Core Biopsy on the right side. 01/12/2021, Malignant Core Biopsy on the left side. 01/12/2021, Malignant Core Biopsy on the left side. Maternal grandmother had breast cancer. Mother had breast cancer. Technique: Method: Whole Breast Handheld. Prior Study Comparison: 01/03/2021 Bilateral Diagnostic Mammogram, [facility]. 01/12/2021 Left Diagnostic Mammogram, [facility]. 01/18/2021 Bilateral Diagnostic Mammogram, [facility]. Findings: The whole breast of the left breast, the axilla of the left breast and the retroareolar of the left breast were scanned. Postbiopsy changes are within the left breast at the 10:00 region. This area is estimated to measure 2.8 x 1.7 cm. No discrete suspicious mass. The palpable hardness is at the lumpectomy site where radiation has recently begun treatment. Additionally, there is a 0.6 x 0.5 x 0.7 cm cyst at the 1:00 position 4 cm from the nipple. An additional cyst 8 cm the nipple is a 2:00 position measuring 1.0 x 0.9 x 1.0 cm.. Overall Assessment: Probably benign, BI-RAD 3 Management: Diagnostic Breast Ultrasound of the left breast in 3 months. A clinical breast exam by your physician is recommended on an annual basis and results should be correlated with mammographic findings. Patient should continue monthly self breast exam. Patient to return before her scheduled follow-up if findings are clinically changing. Electronically signed and approved by: Isaias Mas D.O. Radiologis
== END | disposition home or self-care (01) ==
LOC: RADUSWWP 14:14
PROVIDERS: ATTEND Internal Medicine Hematology & Oncology
DX: N60.02 Solitary cyst of left breast (principal); Z85.3 Personal history of malignant neoplasm of breast; Z80.3 Family history of malignant neoplasm of breast

== ENCOUNTER → 2021-11-14 | Outpatient (CLI) | payer BC, OTHER ==
[2021-11-14 10:58] LABS: African American GFR (CKD) 91.4 (60.0-200.0); Anion Gap 8.4 mmol/L (10.00-18.00); BUN/Creat Ratio 26.67 Ratio (12.00-20.00); Calcium 8.8 mg/dL (8.7-10.3); Carbon Dioxide 24.6 mmol/L (20.0-27.5); Non-African American GFR(CKD) 78.9 (60.0-200.0); Potassium 3.9 mmol/L (3.5-5.5)
[2021-11-14 11:03] LABS: Basophils # (A) 0.06 X 10*3/uL (0.00-0.10); Basophils % (A) 1.2 %; Eosinophils # (A) 0.27 X 10*3/uL (0.04-0.35); Eosinophils % (A) 5.3 %; HCT 37.2 % (37.2-46.3); HGB 11.8 g/dL (12.0-15.0); Immature Grans, Automated 0.2 %; Lymphocytes # (A) 1.26 X 10*3/uL (0.90-5.00); Lymphocytes % (A) 24.9 %; MCH 26.2 pg (27.0-32.0); MCHC 31.7 g/dL (32.0-37.0); MCV 82.5 fL (80.0-97.0); Mean Platelet Volume 11.4 fL (9.5-12.2); Monocytes # (A) 0.42 X 10*3/uL (0.20-1.00); Monocytes % (A) 8.3 %; NRBC Per 100 WBC 0 /100 WBCS (0.0-0.0); Neutrophils # (A) 3.05 X 10*3/uL (1.80-7.70); Neutrophils % (A) 60.1 %; Platelet Count 288 X 10*3/uL (140-440); RBC 4.51 X 10*6/uL (4.10-5.20); RDW 16.3 % (11.5-14.5); WBC 5.07 X 10*3/uL (4.50-10.00)
== END | disposition home or self-care (01) ==
LOC: LABPAT 07:18
PROVIDERS: ATTEND Obstetrics & Gynecology
DX: Z01.812 Encounter for preprocedural laboratory examination (principal)
CPT/HCPCS: 80048; 85025

== ENCOUNTER 2021-11-23 05:38 | Day surgery (SDC) | payer BC, OTHER ==
[2021-11-16 16:00] VITALS: BMI 26.6
--- NOTE | 2021-11-22 17:12 | P.HPOB ---
History of Present Illness H&P Date: 11/22/21 Chief Complaint: Breast Cancer 41 year old presents for TLH BSO using da jacklyn and diagnostic cystoscopy due to ER/NH + breast cancer. Review of Systems All systems: negative Constitutional: Denies chills, Denies fever Eyes: denies blurred vision, denies pain Ears, nose, mouth and throat: Denies headache, Denies sore throat Cardiovascular: Denies chest pain, Denies shortness of breath Respiratory: Denies cough Gastrointestinal: Denies abdominal pain, Denies diarrhea, Denies nausea, Denies vomiting Genitourinary: Denies dysuria, Denies hematuria Musculoskeletal: Denies myalgias Integumentary: Denies pruritus, Denies rash Neurological: Denies numbness, Denies weakness Psychiatric: Denies anxiety, Denies depression Endocrine: Denies fatigue, Denies weight change Past Medical History Past Medical History: Cancer, Thyroid Disorder Additional Past Medical History / Comment(s): Migranes. Hypothyroid. Left breast cancer diagnosed 02/05, has received chemo, last treatment was 06/05/21. History of Any Multi-Drug Resistant Organisms: None Reported Past Surgical History: Breast Surgery, Section, Tubal Ligation Additional Past Surgical History / Comment(s): Left breast biopsy X2, D&C, cryotherapy of the cervix 1996. LEFT LUMPECTOMY Past Anesthesia/Blood Transfusion Reactions: No Reported Reaction Smoking Status: Never smoker - Past Family History Mother Family Medical History: Cancer, Diabetes Mellitus Additional Family Medical History / Comment(s): Breast cancer, colon cancer, cervical cancer and diabetes. Grandmother had leukemia, colon cancer, and breast cancer. Sister(s) Family Medical History: Diabetes Mellitus Medications and Allergies Home Medications Medication Instructions Recorded Confirmed Type Ubidecarenone [Co Q-10] 100 mg PO DAILY 05/21/18 11/16/21 History Thyroid Complex 1 tab PO DAILY 01/03/21 11/16/21 History Cholecalciferol (Vitamin D3) 125 mcg PO DAILY 01/27/21 11/16/21 History [Vitamin D3 (125 MCG = 5,000 IU)] Gut Support Complex 1 tab PO BID 01/27/21 11/16/21 History Vitamin K2 90 mcg PO DAILY 01/27/21 11/16/21 History Herceptin 1 dose INJ Q21D 07/05/21 11/16/21 History Pertuzumab [Perjeta] 0 mg IV Q21D 07/05/21 11/16/21 History Krill Oil 1,000 mg PO DAILY 11/16/21 11/16/21 History Multivitamins, Thera [Multivitamin 1 tab PO DAILY 11/16/21 11/16/21 History (formulary)] Mushroom Complex 1 tab PO DAILY 11/16/21 History Thyroid,Pork [[place] Thyroid] 60 mg PO DAILY 11/16/21 11/16/21 History Vitamin E 400 unit PO DAILY 11/16/21 11/16/21 History Allergies Allergy/AdvReac Type Severity Reaction Status Date / Time No Known Allergies Allergy Verified 11/16/21 15:17 Exam Osteopathic Statement: *. No significant issues noted on an osteopathic structural exam other than those noted in the History and Physical/Consult. HEart: RRR Lungs: CTAB Abdomen: soft, nontender Extremeties: neg maribell's Assessment and Plan (1) Breast cancer Status: Acute Code(s): C50.919 - MALIGNANT NEOPLASM OF UNSP SITE OF UNSPECIFIED FEMALE BREAST SNOMED Code(s): 862903289 Plan: 1. [facility] BSO with da jacklyn and diagnostic cystoscopy
[2021-11-23] MEDS ORDERED: ONDANSETRON 4 MG/2 ML VIAL IVP ONE (05:45)
[2021-11-23] MEDS ORDERED: LACTATED RINGERS 1,000 ML IV SCH (05:45)
[2021-11-23] MEDS ORDERED: HYDROmorphone 0.5 MG/0.5 ML SYRINGE IVP PRN (05:45)
[2021-11-23] MEDS ORDERED: LIDOCAINE 1% (10MG/ML) FOR IV START INTRADERMA PRN (05:45)
[2021-11-23] MEDS ORDERED: MIDAZOLAM 2 MG/2 ML VIAL IV PRN (05:45)
[2021-11-23] MEDS ORDERED: DEXAMETHASONE SOD PHOSPHATE 4 MG/ML 1 ML VIAL IV ONE (05:45)
[2021-11-23] MEDS ORDERED: fentaNYL (PF) 50 MCG/ML 2 ML AMP IVP ONE (07:06)
[2021-11-23] MEDS ORDERED: MIDAZOLAM 2 MG/2 ML VIAL IVP ONE (07:06)
[2021-11-23] MEDS ORDERED: LIDOCAINE 2% INJ 20 MG/ML (2 ML VIAL) ONE (07:15)
[2021-11-23] MEDS ORDERED: NEOSTIGMINE 1 MG/ML 10 ML VIAL ONE (07:15)
[2021-11-23] MEDS ORDERED: ROPIVACAINE 5 MG/ML 30 ML VIAL ONE (07:15)
[2021-11-23] MEDS ORDERED: SODIUM CHLORIDE 0.9% (PF) 10 ML VIAL ONE (07:15)
[2021-11-23] MEDS ORDERED: SUCCINYLCHOLINE CHLORIDE 200 MG/10 ML VIAL IV ONE (07:15)
[2021-11-23] MEDS ORDERED: HYDROmorphone (PF) 1 MG/ML ONE (07:15)
[2021-11-23] MEDS ORDERED: GLYCOPYRROLATE 0.2 MG/ML 2 ML VIAL ONE (07:15)
[2021-11-23] MEDS ORDERED: PROPOFOL 10 MG/ML 20 ML VIAL IV ONE (07:15)
[2021-11-23] MEDS ORDERED: ACETAMINOPHEN IV (For NPO) 1,000 MG/100 ML VIAL ONE (07:15)
[2021-11-23] MEDS ORDERED: fentaNYL (PF) 50 MCG/ML 2 ML AMP ONE (07:15)
[2021-11-23] MEDS ORDERED: KETOROLAC 15 MG/ML 1 ML VIAL ONE (07:15)
[2021-11-23] MEDS ORDERED: ROCURONIUM 10 MG/ML (5 ML VIAL) IV ONE (07:15)
[2021-11-23] MEDS ORDERED: BUPIVACAINE (PF) 0.25% 30 ML VIAL SQ ONE ×2 (08:16→08:45)
--- NOTE | 2021-11-23 08:21 | P.ANPRN ---
Procedure Note - Anesthesia - Nerve Block Performed Bilateral Transversus Abdominis Single Time Out Performed: Yes (0705) Date of Procedure: 11/23/21 Procedure Start Time: 07:06 Procedure Stop Time: 07:11 Location of Patient: PreOp Indication: Acute Post-Operative Pain, Requested by Surgeon Specifically requested for management of pain by DrRao: Sara Simon Sedation Type: Sedate with meaningful contact maintained Preparation: Sterile Prep Position: Supine Catheter: None Needle Types: Pajunk Needle Gauge: 21 Ultrasound used to visualize needle placement: Yes Ultrasound used to observe medication spread: Yes Injectate: 0.5% Ropivacaine (see comment for volume) (15cc + 10cc nacl pf) Blood Aspirated: No Pain Paresthesia on Injection Noted: No Resistance on Injection: Normal Image Stored and Saved: Yes Events: Uneventful and Well Tolerated
--- NOTE | 2021-11-23 09:26 | P.OP ---
Date of Procedure: 11/23/21 Preoperative Diagnosis: 1. ER/KS + breast cancer 2. fibroid uterus 3. menorrhagia Postoperative Diagnosis: 1. ER/KS + breast cancer 2. fibroid uterus 3. menorrhagia Procedure(s) Performed: total laparoscopic hysterectomy and bilateral salpingo-oophorectomy using da Meena and diagnostic cystoscopy Anesthesia: ROSA Surgeon: Sara Simon Manager Asset #1: Monae Houston Estimated Blood Loss (ml): 100 IV fluids (ml): 600 Urine output (ml): 400 Pathology: other (uterus, cervix, bilateral tubes and ovaries) Condition: stable Disposition: PACU Operative Findings: fibroid uterus was sounded to 12 cm. Normal tubes and ovaries. Description of Procedure: Patient taken the operating room where general anesthesia was obtained without difficulty. She is prepped and draped in normal sterile fashion dorsal lithotomy position, legs placed in the Elder stirrups. Weighted speculum placed in the vagina and the anterior lip the cervix was grasped with single-tooth tenaculum. The uterus sounded to 6 cm and the cervix diameter was 2.5 cm. The appropriate manipulator tip and ring were placed on the Lacey manipulator. The Lacey manipulator was then placed in the uterus. Schultz catheter was also placed. Attention was then turned to the abdomen and gloves were changed. A 5 mm supraumbilical incision was made the scalpel and a 5 mm optical trocar was placed under direct visualization. 10 cm to the right of this and 2 cm down a 5 mm incision was made and 8 mm da Meena port was placed under direct visualization. Same measurements on the opposite side of the patient's abdomen, the 5 mm incision was made and 8 mm da Meena port was placed under direct visualization. In the left upper quadrant a 10 mm incision was made and a 10 mm optical trocar was placed under direct visualization. The 5 mm optical trocar was then replaced with the 8 mm da Meena camera port. The robot was docked on patient's right side. The camera was introduced and then the monopolar curved scissor and [place] bipolar placed under direct visualization. I broke scrub and went to the physician console. The left infundibulopelvic ligament was cauterized with the [place] bipolar and cut with monopolar curved scissors. The left round ligament was cauterized with the [place] bipolar and cut with monopolar curved scissors. The posterior leaf of the broad ligament was taken down using the monopolar curved scissors. Anterior leaf of the broad ligament was then taken down using the monopolar curved scissors. The uterine artery was cauterized with the [place] bipolar and cut with monopolar curved scissors. The bladder flap was then started using the monopolar curved scissors. Attention was then turned to the right side of the patient's anatomy and the right infundibular pelvic ligament was cauterized with the [place] bipolar and cut with monopolar curved scissors. The right round ligament was cauterized with the [place] bipolar and cut with monopolar curved scissors. Posterior leaf of the broad ligament was taken down using the monopolar curved scissors and the anterior leaf was taken down using the monopolar curved scissors. The uterine artery was cauterized the [place] bipolar cut with monopolar curved scissors. The bladder flap was then finished on this side. Anterior colpotomy was made using the monopolar curved scissors. The rest of the uterus was from the vaginal cuff by following the ring around with the monopolar curved scissors through the uterosacral ligaments back to the anterior portion. Once the uterus and cervix were amputated they were pulled through the vaginal cuff. Hemostasis was assured. The instruments were changed for the Cardier forcep and the brayan suture cut. The vaginal cuff was then closed using 2-O stratafix barbed suture in a running fashion. Hemostasis was again assured and the pelvis was irrigated. All instruments were removed from the abdomen and the robot was undocked. I scrubbed back in to perform a cystoscopy. There were jets from both ureteral orifices. The abdominal incisions were closed with 4-0 Vicryl in a subcuticular fashion. Patient tolerated the procedure well, sponge and instrument counts correct 2 and she was taken to recovery room in stable condition condition
[2021-11-23] MEDS ORDERED: METOCLOPRAMIDE 5 MG/ML 2 ML VIAL IVP PRN (10:28)
[2021-11-23] MEDS ORDERED: HYDROcodone/APAP 7.5-325MG 1 EACH TAB PO PRN (10:28)
[2021-11-23] MEDS ORDERED: IBUPROFEN 600 MG TAB PO PRN (10:28)
[2021-11-23] MEDS ORDERED: SIMETHICONE 80 MG CHEWABLE PO PRN (10:28)
[2021-11-23] MEDS ORDERED: ONDANSETRON 4 MG/2 ML VIAL IVP PRN (10:28)
[2021-11-23] MEDS ORDERED: KETOROLAC 15 MG/ML 1 ML VIAL IVP PRN (10:28)
[2021-11-23 11:07] VITALS: RESP 16
[2021-11-23] MEDS: SENNOSIDES-DOCUSATE SODIUM 1 EACH TAB PO SCH (20:20)
[2021-11-23 23:05] VITALS: TEMP 98.3
[2021-11-24 06:57] LABS: Basophils % (A) 1 %; Eosinophils # (A) 0.1 k/uL (0-0.7); Eosinophils % (A) 1 %; HCT 35.6 % (34.0-46.0); Hypochromasia Slight; Lymphocytes # (A) 1.4 k/uL (1.0-4.8); Lymphocytes % (A) 24 %; MCH 26.2 pg (25.0-35.0); MCHC 30.9 g/dL (31.0-37.0); MCV 84.8 fL (80.0-100.0); Mean Platelet Volume 8.1; Monocytes # (A) 0.4 k/uL (0-1.0); Monocytes % (A) 7 %; Neutrophils # (A) 4.1 k/uL (1.3-7.7); Neutrophils % (A) 67 %; Platelet Count 211 k/uL (150-450); RDW 15.8 % (11.5-15.5); WBC 6.1 k/uL (3.8-10.6)
[2021-11-24 07:31] VITALS: BP 132/82; PULSE 74
--- NOTE | 2021-11-24 07:47 | P.DS ---
Providers Date of admission: 11/23/2021 Expected date of discharge: 11/24/21 Attending physician: Sara Simon Primary care physician: Stated None - Discharge Diagnosis(es) (1) Breast cancer Current Visit: No Status: Chronic (2) History of robot-assisted laparoscopic hysterectomy Current Visit: Yes Status: Acute Hospital Course: Patient presented for TLHBSO due to ER/RI positive breast cancer. She underwent this procedure without complication. Postoperatively patient is doing very well she denies nausea, vomiting, chest pain, shortness of breath or calf pain. She is passing flatus and tolerating regular diet. Ambulating and voiding without difficulty. Patient has good pain control. She will be discharged home postoperative day #1 in stable condition to follow-up with me in 3 weeks. Plan - Discharge Summary Discharge Rx Participant: Yes New Discharge Prescriptions: New Ibuprofen [Motrin] 600 mg PO Q6HR PRN #30 tab PRN Reason: Mild Discomfort HYDROcodone/APAP 7.5-325MG [[place] 7.5-325] 1 each PO Q6HR PRN #12 tab PRN Reason: Pain No Action Ubidecarenone [Co Q-10] 100 mg PO DAILY Vitamin K2 90 mcg PO DAILY Gut Support Complex 1 tab PO BID Herceptin 1 dose INJ Q21D Pertuzumab [Perjeta] 0 mg IV Q21D Multivitamins, Thera [Multivitamin (formulary)] 1 tab PO DAILY Thyroid,Pork [[place] Thyroid] 60 mg PO DAILY Thyroid Complex 1 tab PO DAILY Cholecalciferol (Vitamin D3) [Vitamin D3 (125 MCG = 5,000 IU)] 125 mcg PO DAILY Krill Oil 1,000 mg PO DAILY Vitamin E 400 unit PO DAILY Mushroom Complex 1 tab PO DAILY Discharge Medication List Ubidecarenone [Co Q-10] 100 mg PO DAILY 05/21/18 [History] Thyroid Complex 1 tab PO DAILY 01/03/21 [History] Cholecalciferol (Vitamin D3) [Vitamin D3 (125 MCG = 5,000 IU)] 125 mcg PO DAILY 01/27/21 [History] Gut Support Complex 1 tab PO BID 01/27/21 [History] Vitamin K2 90 mcg PO DAILY 01/27/21 [History] Herceptin 1 dose INJ Q21D 07/05/21 [History] Pertuzumab [Perjeta] 0 mg IV Q21D 07/05/21 [History] Krill Oil 1,000 mg PO DAILY 11/16/21 [History] Multivitamins, Thera [Multivitamin (formulary)] 1 tab PO DAILY 11/16/21 [History] Mushroom Complex 1 tab PO DAILY 11/16/21 [History] Thyroid,Pork [[place] Thyroid] 60 mg PO DAILY 11/16/21 [History] Vitamin E 400 unit PO DAILY 11/16/21 [History] HYDROcodone/APAP 7.5-325MG [[place] 7.5-325] 1 each PO Q6HR PRN #12 tab 11/24/21 [Rx] Ibuprofen [Motrin] 600 mg PO Q6HR PRN #30 tab 11/24/21 [Rx] Follow up Appointment(s)/Referral(s): Sara Simon DO [Doctor of Osteopathic Medicine] - 3 Weeks Discharge Disposition: HOME SELF-CARE
[2021-11-24] MEDS: SENNOSIDES-DOCUSATE SODIUM 1 EACH TAB PO SCH (07:48)
[2021-11-24] MEDS ORDERED: THYROID, PORK 30 MG TAB PO SCH (09:00)
== END 2021-11-24 09:12 | disposition home or self-care (01) ==
LOC: OR 05:38 → 4FBP 09:19 → OR 11-24 09:12
PROVIDERS: ATTEND Obstetrics & Gynecology
DX: D25.9 Leiomyoma of uterus, unspecified (principal); N92.0 Excessive and frequent menstruation with regular cycle; E03.9 Hypothyroidism, unspecified; G43.909 Migraine, unspecified, not intractable, without status migrainosus; Z85.3 Personal history of malignant neoplasm of breast; Z92.21 Personal history of antineoplastic chemotherapy; Z98.891 History of uterine scar from previous surgery; Z98.51 Tubal ligation status; Z98.890 Other specified postprocedural states; Z83.3 Family history of diabetes mellitus; Z80.3 Family history of malignant neoplasm of breast; Z80.0 Family history of malignant neoplasm of digestive organs; Z80.49 Family history of malignant neoplasm of other genital organs; Z80.6 Family history of leukemia; Z79.890 Hormone replacement therapy; Z79.899 Other long term (current) drug therapy
CPT/HCPCS: 58573; S2900; 64488; 81025; 85025; 86850; 86900; 86901; 88307

== ENCOUNTER → 2021-12-28 | Outpatient (CLI) | payer BC ==
--- NOTE | 2021-12-29 11:04 | CA ---
Transthoracic Echo Report Name: Carlene Ortez Age: 41 Gender: F : 1980 Exam Date: 12/28/2021 13:53 Exam Location: [facility] Ht (in): 66 Wt (lb): 162 Ordering Physician: Edgar Felix MD Attending/Referring Phys: Long Line Teamster Mary Negrete RDCS Procedure CPT: Indications: Z01.818 Chemo Cardiac Hx: Technical Quality: Good Contrast 1: Total Dose (mL): Contrast 2: Total Dose (mL): MEASUREMENTS (Male / Female) Normal Values 2D ECHO LV Diastolic Diameter PLAX 4.1 cm 4.2 - 5.9 / 3.9 - 5.3 cm LV Systolic Diameter PLAX 2.7 cm IVS Diastolic Thickness 1.0 cm 0.6 - 1.0 / 0.6 - 0.9 cm LVPW Diastolic Thickness 1.1 cm 0.6 - 1.0 / 0.6 - 0.9 cm LV Relative Wall Thickness 0.5 RV Internal Dim ED PLAX 2.7 cm LA Systolic Diameter LX 2.9 cm 3.0 - 4.0 / 2.7 - 3.8 cm LA Volume 36.4 cm??? 18 - 58 / 22 - 52 cm??? M-MODE Aortic Root Diameter MM 2.9 cm MV E Point Septal Separation 0.3 cm AV Cusp Separation MM 1.7 cm DOPPLER AV Peak Velocity 130.1 cm/s AV Peak Gradient 6.8 mmHg MV Area PHT 3.2 cm??? Mitral E Point Velocity 84.2 cm/s Mitral A Point Velocity 64.8 cm/s Mitral E to A Ratio 1.3 MV Deceleration Time 235.6 ms MV E' Velocity 8.3 cm/s Mitral E to MV E' Ratio 10.2 FINDINGS Left Ventricle Left ventricular ejection fraction is estimated at 55-60 %. Mildly increased septal wall thickness. Mildly increased posterior wall thickness. Left ventricular cavity size normal. Right Ventricle Normal right ventricular size and function. Unable to estimate the right ventricular systolic pressure. Right Atrium Normal right atrial size. Left Atrium Normal left atrial size. No evidence for an atrial septal defect. Mitral Valve Structurally normal mitral valve. No mitral stenosis, regurgitation or prolapse. Aortic Valve Trileaflet aortic valve. No aortic valve stenosis or regurgitation. Tricuspid Valve Structurally normal tricuspid valve. Pulmonic Valve Structurally normal pulmonic valve. Pericardium Normal pericardium. No pericardial effusion. Aorta Normal size aortic root and proximal ascending aorta. CONCLUSIONS Left ventricular ejection fraction 55-60% No mitral regurgitation No pericardial effusion Global longitudinal strain -18.5 Previewed by: Dr. Sandeep Zhao DO (Electronically Signed) Final Date: 29 December 2021 11:03
== END | disposition home or self-care (01) ==
LOC: RADECHMAIN 13:50
PROVIDERS: ATTEND Internal Medicine Hematology & Oncology
DX: Z01.818 Encounter for other preprocedural examination (principal)
CPT/HCPCS: 93306

== ENCOUNTER → 2022-01-04 | Outpatient (CLI) | payer BC, OTHER ==
--- NOTE | 2022-01-04 14:25 | BD ---
EXAMINATION TYPE: Axial Bone Density DATE OF EXAM: 01/04/2022 COMPARISON: NEW TO BONE DENSITY, BASELINE CLINICAL HISTORY: 41 years year old Female. ICD-10 CODE: C50.212 BREAST CANCER Height: 65.2 Weight: 161 FRAX RISK QUESTIONS: Secondary Osteoporosis: YES 3. Menopause before 45: YES RISK FACTORS HISTORY OF: Diet low in dairy products/other sources of calcium: YES Postmenopausal woman: 40, TOTAL HYST Hyperparathyroidism: NO Adrenal Insufficiency: NO MEDICATIONS: Thyroid Medications: YES, FOR ABOUT A YEAR, SYNTHROID, 3 YRS, ARMOR FOR 1YR Additional Medications: HX OF CHEMO AND RADIATION FOR LT BREAST CANCER, VIT D3 AND CALCIUM Additional History: BREAST CANCER, THIS YEAR, LT BREAST, CHEMO AND RADIATION, THYROID EXAM MEASUREMENTS: Bone mineral densitometry was performed using the [email or web address] System. Bone mineral density as measured about the Lumbar spine is: ----- L1-L4(G/cm2): 1.350 T Score Values are as follows: ----- L1: 1.8 ----- L2: 1.5 ----- L3: 1.3 ----- L4: 1.1 ----- L1-L4: 1.4 Bone mineral density FIRST DEXA STUDY, BASELINE STUDY Bone mineral density about the R hip (g/cm2): 1.060 Bone mineral density about the L hip (g/cm2): 1.062 T Score values are as follows: -----R Neck: -0.1 -----L Neck: 0.1 -----R Total: 0.4 -----L Total: 0.4 Bone mineral density BASELINE STUDY FRAX%s: The graph provided illustrates a 2.0% chance for a major osteoporotic fx and a 0.0% chance fo r the hips probability for fx in 10 years time. IMPRESSION: Normal (Values between +1 and -1 indicate normal bone mass). Consider repeating this study in 5 year s or sooner if there is some new clinical indication. NOTE: T-SCORE=SD OF THE YOUNG ADULT MEAN.
== END | disposition home or self-care (01) ==
LOC: RADBDWWP 09:32
PROVIDERS: ATTEND Internal Medicine Hematology & Oncology
DX: C50.212 Malignant neoplasm of upper-inner quadrant of left female breast (principal); M85.89 Other specified disorders of bone density and structure, multiple sites; Z78.0 Asymptomatic menopausal state
CPT/HCPCS: 77080

== ENCOUNTER → 2022-01-04 | Outpatient (CLI) | payer BC, OTHER ==
--- NOTE | 2022-01-05 13:50 | MM ---
Reason for Exam: Additional evaluation requested from prior study. Last screening mammogram was performed 11 month(s) ago. Patient History: Menarche at age 12. First Full-Term at age 20. Hysterectomy at age 41. Other cancer, age 16. Breast cancer, left, age 40. Patient used Hormonal Contraceptives for 2 years. 07/07/2021, Lumpectomy on the Left side. 1995, Benign Excisional Biopsy on the left side. Malignant Core Biopsy. 07/07/2021, Malignant Core Biopsy on the left side. 01/18/2021, Benign Core Biopsy on the left side. 01/18/2021, Benign Core Biopsy on the right side. 01/12/2021, Malignant Core Biopsy on the left side. 01/12/2021, Malignant Core Biopsy on the left side. Maternal grandmother had breast cancer. Mother had breast cancer. Prior Study Comparison: 05/07/1997 Left Diagnostic Ultrasound, [facility]. 04/27/1998 Bilateral Diagnostic Ultrasound, [facility]. 04/10/1999 Bilateral Diagnostic Mammogram, [facility]. 12/04/2013 Bilateral Diagnostic Mammogram, [facility]. 05/15/2016 Bilateral Screening Mammogram, [facility]. 01/03/2021 Bilateral Diagnostic Mammogram, [facility]. 01/03/2021 Bilateral Diagnostic Ultrasound, [facility]. 01/12/2021 Left Diagnostic Mammogram, [facility]. 01/18/2021 Bilateral Diagnostic Mammogram, [facility]. 08/25/2021 Left US breast LT, [facility]. Tissue Density: The breast tissue is heterogeneously dense. This may lower the sensitivity of mammography. Findings: Analyzed By CAD. Biopsy clip in the right breast is redemonstrated lower inner aspect. There is partial visualization of Mediport catheter towards the right axilla on current study. Biopsy clip outer aspect left breast again seen. There is new distortion with surgical clips and overlying skin thickening in the left breast middle depth central upper aspect presumed posttreatment change. No new mass or suspicious group of microcalcification in either breast. Overall Assessment: Probably benign, BI-RAD 3 Management: Diagnostic Mammogram of the left breast in 6 months. Presumed new baseline left breast. Results were given to the patient verbally at the time of exam. Electronically signed and approved by: Quinn Higgins M.D.
== END | disposition home or self-care (01) ==
LOC: RADMAMWWP 09:35
PROVIDERS: ATTEND Surgery
DX: R92.8 Other abnormal and inconclusive findings on diagnostic imaging of breast (principal); Z80.3 Family history of malignant neoplasm of breast
CPT/HCPCS: 77062; 77066

== ENCOUNTER 2022-03-02 06:18 | Day surgery (SDC) | payer BC, OTHER ==
--- NOTE | 2022-03-01 16:16 | P.GSHP ---
History of Present Illness H&P Date: 03/02/22 Chief Complaint: Colon cancer screening, breast cancer 41-year-old female coming in for colonoscopy and Port-A-Cath removal. Patient with family history of colon cancer in her mother, maternal grandmother, and maternal grandfather. Patient with history of left breast cancer and underwent lumpectomy in June. No bowel complaints currently. Past Medical History Past Medical History: Cancer, Thyroid Disorder Additional Past Medical History / Comment(s): Migraines, Hypothyroid. Left breast cancer diagnosed 02/05, last chemo beginning of 2021 History of Any Multi-Drug Resistant Organisms: None Reported Past Surgical History: Breast Surgery, Section, Hysterectomy, Tubal Ligation Additional Past Surgical History / Comment(s): Left breast biopsy X2, left lumpectomy w/lymph node removal, D&C, cryotherapy of the cervix 1996, port a cath insertion Past Anesthesia/Blood Transfusion Reactions: No Reported Reaction Smoking Status: Never smoker - Past Family History Mother Family Medical History: Cancer, Diabetes Mellitus Additional Family Medical History / Comment(s): Breast cancer, colon cancer, cervical cancer and diabetes. Grandmother had leukemia, colon cancer, and breast cancer. Sister(s) Family Medical History: Diabetes Mellitus Medications and Allergies Home Medications Medication Instructions Recorded Confirmed Type Ubidecarenone [Co Q-10] 100 mg PO DAILY 05/21/18 02/28/22 History Thyroid Complex 1 tab PO DAILY 01/03/21 02/28/22 History Gut Support Complex 1 tab PO BID 01/27/21 02/28/22 History Krill Oil 1,000 mg PO DAILY 11/16/21 02/28/22 History Multivitamins, Thera [Multivitamin 1 tab PO DAILY 11/16/21 02/28/22 History (formulary)] Mushroom Complex 1 tab PO DAILY 11/16/21 02/28/22 History Thyroid,Pork [[place] Thyroid] 90 mg PO DAILY 11/16/21 02/28/22 History Vitamin E 400 unit PO DAILY 11/16/21 02/28/22 History Vitamin D3/Vitamin K2 (Mk4) 1 each PO DAILY 02/28/22 02/28/22 History [Vitamin K2 Plus D3 Tablet] Allergies Allergy/AdvReac Type Severity Reaction Status Date / Time No Known Allergies Allergy Verified 11/23/21 06:11 Surgical - Exam Physical exam: General: Well-developed, well-nourished HEENT: Normocephalic, sclerae nonicteric Abdomen: Nontender, nondistended Extremities: No edema Neuro: Alert and oriented Assessment and Plan (1) Breast cancer Narrative/Plan: 41-year-old female with breast cancer and family history of colon cancer. We'll proceed with Port-A-Cath removal and colonoscopy tomorrow. Risks of bleeding, infection, perforation reviewed. She understands and wishes to proceed. Status: Chronic Code(s): C50.919 - MALIGNANT NEOPLASM OF UNSP SITE OF UNSPECIFIED FEMALE BREAST SNOMED Code(s): 145397548
[~2022-03-02 06:18] MED LIST changes: -BUPIVACAINE (PF) 0.25% 30 ML VIAL SQ ONE; -DEXAMETHASONE SOD PHOSPHATE 4 MG/ML 1 ML VIAL IV ONE; -HYDROmorphone (PF) 1 MG/ML ONE; -HYDROmorphone 0.5 MG/0.5 ML SYRINGE IVP PRN; -LACTATED RINGERS 1,000 ML IV SCH; -LIDOCAINE 1% INJ 10MG/ML (20 ML MDV) ONE; -LIDOCAINE 1% INJ 10MG/ML (20 ML MDV) SQ ONE; -METHYLENE BLUE 10 MG/ML (10 ML VIAL) MISCELLANE ONE; -MIDAZOLAM 2 MG/2 ML VIAL ONE; -NALOXONE 0.4 MG/ML 1 ML VIAL IV PRN; -ONDANSETRON 4 MG/2 ML VIAL IVP ONE; -PROPOFOL 10 MG/ML 20 ML VIAL IV ONE; -Pre Op ABX Message 1 EACH MISC MISCELLANE ONE; -SCOPOLAMINE 1 MG/72 HR PATCH TRANSDERM ONE; -SODIUM CHLORIDE 0.9% 100 ML with ceFAZolin 2,000 MG IV ONE; -fentaNYL (PF) 50 MCG/ML 2 ML AMP ONE; -traMADol 50 MG TAB PO PRN
[2022-03-02] MEDS ORDERED: ONDANSETRON 4 MG/2 ML VIAL ONE (06:53)
[2022-03-02] MEDS ORDERED: LACTATED RINGERS 1,000 ML IV SCH (06:56)
[2022-03-02] MEDS ORDERED: PROPOFOL 10 MG/ML 20 ML VIAL IV ONE (07:24)
[2022-03-02] MEDS ORDERED: MIDAZOLAM 2 MG/2 ML VIAL ONE (07:24)
[2022-03-02] MEDS ORDERED: LIDOCAINE 2% INJ 20 MG/ML (2 ML VIAL) ONE (07:24)
[2022-03-02] MEDS ORDERED: fentaNYL (PF) 50 MCG/ML 2 ML AMP ONE (07:24)
[2022-03-02] MEDS ORDERED: LACTATED RINGERS 1,000 ML IV ONE (07:28)
[2022-03-02] MEDS ORDERED: LIDOCAINE 1% INJ 10MG/ML (5 ML VIAL-PF) SQ ONE (07:48)
[2022-03-02] MEDS ORDERED: NALOXONE 0.4 MG/ML 1 ML VIAL IV PRN (08:19)
[2022-03-02] MEDS ORDERED: ACETAMINOPHEN TAB 325 MG TAB PO PRN (08:19)
--- NOTE | 2022-03-02 08:22 | P.OP ---
Date of Procedure: 03/02/22 Procedure(s) Performed: PREOPERATIVE DIAGNOSIS: Breast cancer, colon cancer screening with family history of colon cancer POSTOPERATIVE DIAGNOSIS: Same, normal colon PROCEDURE: Port-A-Cath removal, colonoscopy SURGEON: Beth EBL: Minimal ANESTHESIA: Sedation and local COMPLICATIONS: None OPERATIVE PROCEDURE: Patient was placed in the supine position. The patient was sedated per anesthesia that time. The chest was prepped and draped in the usual sterile fashion. The skin was localized with Marcaine solution. The previous incision was re-incised using a scalpel. The port was easily excised using accommodation of blunt dissection sharp dissection and electrocautery. The subcutaneous tissues were reapproximated using 3-0 Vicryl sutures. The skin was reapproximated using 4-0 Monocryl sutures. Skin glue was then applied. The patient was then placed in the left decubitus position. The Olympus colonoscope was inserted into the anus and passed under direct visualization to the base of the cecum. The appendiceal orifice was visualized. From that point the scope was slowly withdrawn inspecting all surfaces carefully. There were no neoplastic inflammatory or polypoid lesions throughout the cecum, ascending, transverse, descending, sigmoid and rectum. There was no visible diverticulosis noted. Digital rectal examination was normal. The patient was taken to the recovery room in stable condition per anesthesia guidelines.
[2022-03-02 08:24] VITALS: RESP 16; TEMP 97.5
[2022-03-02 08:39] VITALS: BP 119/74; PULSE 75
== END 2022-03-02 09:13 | disposition home or self-care (01) ==
LOC: ORWHC2ENDO 06:18
PROVIDERS: ATTEND Surgery
DX: Z12.11 Encounter for screening for malignant neoplasm of colon (principal); C50.912 Malignant neoplasm of unspecified site of left female breast; E07.9 Disorder of thyroid, unspecified; G43.909 Migraine, unspecified, not intractable, without status migrainosus; E03.9 Hypothyroidism, unspecified; Z90.710 Acquired absence of both cervix and uterus; Z98.82 Breast implant status; Z98.891 History of uterine scar from previous surgery; Z98.51 Tubal ligation status; Z80.0 Family history of malignant neoplasm of digestive organs; Z83.3 Family history of diabetes mellitus; Z80.3 Family history of malignant neoplasm of breast; Z80.8 Family history of malignant neoplasm of other organs or systems; Z79.890 Hormone replacement therapy; Z79.899 Other long term (current) drug therapy
CPT/HCPCS: 45378; 36590; J2250; J0690; J2001 ×2; J3010; J2704

== ENCOUNTER → 2023-01-08 | Outpatient (CLI) | payer BC, OTHER ==
--- NOTE | 2023-01-09 09:02 | MM ---
Reason for Exam: Screening (asymptomatic). Last screening mammogram was performed 12 month(s) ago. Patient History: Menarche at age 12. First Full-Term at age 20. Hysterectomy at age 41. Other cancer, age 16. Breast cancer, left, age 40. Patient used Hormonal Contraceptives for 2 years. 07/07/2021, Lumpectomy on the Left side. 1995, Benign Excisional Biopsy on the left side. Malignant Core Biopsy. 07/07/2021, Malignant Core Biopsy on the left side. 01/18/2021, Benign Core Biopsy on the left side. 01/18/2021, Benign Core Biopsy on the right side. 01/12/2021, Malignant Core Biopsy on the left side. 01/12/2021, Malignant Core Biopsy on the left side. Maternal grandmother had breast cancer. Mother had breast cancer. Prior Study Comparison: 01/12/2021 Left Diagnostic Mammogram, [facility]. 01/18/2021 Bilateral Diagnostic Mammogram, [facility]. 01/04/2022 Bilateral MG 3D diag mammo w/cad BEAU, [facility]. Tissue Density: The breast tissue is heterogeneously dense. This may lower the sensitivity of mammography. Findings: Analyzed By CAD. There is no suspicious group of microcalcifications or new suspicious mass in either breast. Stable postoperative changes left breast. Overall Assessment: Benign, BI-RAD 2 Management: Screening Mammogram of both breasts in 1 year. . Patient should continue monthly self-breast exams. A clinical breast exam by your physician is recommended on an annual basis. This exam should not preclude additional follow-up of suspicious palpable abnormalities. Note on Monica scores and lifetime risk: 1. A Monica score greater than 3% is considered moderate risk. If this is the case, consider specialist referral to assess eligibility for a risk reducing agent. 2. If overall lifetime risk for the development of breast cancer is 20% or higher, the patient may qualify for future screening with alternating mammogram and breast MRI. Electronically signed and approved by: Eddi Mancera M.D. Radiologis
== END | disposition home or self-care (01) ==
LOC: RADMAMWWP 13:50
PROVIDERS: ATTEND Internal Medicine Hematology & Oncology
DX: Z12.31 Encounter for screening mammogram for malignant neoplasm of breast (principal); C50.212 Malignant neoplasm of upper-inner quadrant of left female breast; Z80.3 Family history of malignant neoplasm of breast
CPT/HCPCS: 77063; 77067

== ENCOUNTER → 2023-01-10 | Outpatient (CLI) | payer BC, OTHER ==
[2023-01-10 10:55] LABS: Basophils # (A) 0.04 X 10*3/uL (0.00-0.10); Basophils % (A) 0.8 %; Eosinophils # (A) 0.16 X 10*3/uL (0.04-0.35); Eosinophils % (A) 3.1 %; HCT 42.4 % (37.2-46.3); HGB 13.7 d/dL (12.0-15.0); Lymphocytes # (A) 1.64 X 10*3/uL (0.90-5.00); Lymphocytes % (A) 31.3 %; MCH 27.5 pg (27.0-32.0); MCHC 32.3 d/dL (32.0-37.0); MCV 85.1 FL (80.0-97.0); Mean Platelet Volume 10.9 FL (9.5-12.2); Monocytes # (A) 0.38 X 10*3/uL (0.20-1.00); Monocytes % (A) 7.3 %; NRBC Per 100 WBC 0 X 10*3/uL (0.00-0.01); Neutrophils % (A) 57.1 %; Platelet Count 253 X 10*3/uL (140-440); RBC 4.98 X 10*6/uL (4.10-5.20); RDW 13.9 % (11.5-14.5); WBC 5.24 X 10*3/uL (4.50-10.00)
[2023-01-10 11:27] LABS: ALT 17 U/L (8-44); AST 13 U/L (13-35); Albumin 4.6 d/dL (3.8-4.9); Alkaline Phosphatase 106 U/L (41-126); BUN/Creat Ratio 21.78 Ratio (12.00-20.00); Blood Urea Nitrogen 19.6 mg/dL (9.0-27.0); Carbon Dioxide 26.7 mmol/L (21.6-31.8); Chloride 106 mmol/L (96-109); Chol/HDL Ratio 6.47 Ratio; Globulin 2.7 d/dL (1.6-3.3); Glucose 93 mg/dL (70-110); LDL Cholesterol,Calculated 234.2 mg/dL (0.0-131.0); Potassium 4.6 mmol/L (3.5-5.5); Sodium 144 mmol/L (135-145); T4, Free (Free Thyroxine) 0.85 ng/dL (0.80-1.80); Total Bilirubin 0.2 mg/dL (0.3-1.2); Total Protein 7.3 d/dL (6.2-8.2)
== END | disposition home or self-care (01) ==
LOC: LABWHC1 06:49
PROVIDERS: ATTEND Family Medicine
DX: Z13.21 Encounter for screening for nutritional disorder (principal); Z13.220 Encounter for screening for lipoid disorders; Z13.228 Encounter for screening for other metabolic disorders; Z13.29 Encounter for screening for other suspected endocrine disorder; E03.9 Hypothyroidism, unspecified
CPT/HCPCS: 36415; 80053; 80061; 82306; 84432; 84439; 84443; 84481; 85025; 86376